=== PATIENT | male | born 1960 | race Caucasian/White ===

== ENCOUNTER 2024-06-02 09:10 | Outpatient (AMB) | payer MEDICARE, MEDICAID, SELFPAY ==
--- NOTE | 2024-06-02 09:13 | MHC.PC.OV ---
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 Intake Note: New patient visit Building Performance Consultant Required: No Allergies No Known Allergies Allergy (Verified 06/02/24 09:14) Medication List - Last Reconciled 06/02/24 by Lisa Valenzuela PA-C fluticasone furoate-vilanterol 100-25 mcg/dose (Breo Ellipta) 1 ea inhalation DAILY gabapentin mg PO labetalol 200 mg PO BID methocarbamol mg PO multivitamin 1 tab PO DAILY tamsulosin 0.8 mg PO DAILY umeclidinium 62.5 mcg/actuation (Incruse Ellipta) 1 inh inhalation DAILY venlafaxine ER 75 mg PO DAILY Tobacco use date assessed: 06/02/24 Fall risk assessment: 1 Fall in past year Last assessed Fall Risk: 06/02/24 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 He is transferring from [facility], Dr. Spaulding. He reports a significant past medical history of prostate ca, anxiety, depression, benign essential tremor, asthma, htn, borderline hld, severe yovani CV: Blood pressure today in the office is 136/76. He is currently well-controlled with labetalol 200 mg twice a day. In the past he was on amlodipine in addition to this but unfortunately was getting lightheaded with this. This was decided by [facility]. He states that he thinks he was over treated because he did lose weight with diet and lifestyle modifications following the prostate cancer diagnosis. He did have a complete cardiac workup a few years ago given family history of heart disease. Pulm: follows with [facility] sleep [facility] Heme/onc: Following with DF. Dx last year with prostate ca stage 4. He was dx after developing sx. He states that he went to [facility] and was told that he had prostate cancer so then went to [facility] where he has been working with a collaborative team. He has responded to radiation therapy. He did signed to get a release of records. Currently he is being treated with hormones and has been experiencing some hot flashes and difficulty sleeping. He is trialing venlafaxine and gabapentin. He was also put on trazodone 50 mg but does have a hard time falling asleep and staying asleep. States that he does not have significant pain but he does have some neuropathy in his feet and this does appear to be improved with the gabapentin. Pysch: As above. 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 There has been response to radiation. He is going to try this again. He states that he does not have significant pain in his states that he does under report his symptoms. He states that he does feel achy at times. He did recently trip over his disabled adult child and was prescribed muscle relaxants which he states has been helpful. He did have an x-ray of his ribs and he states that they were normal. PSA: being treated at for prostate ca Colonoscopy: UTD-2021- due in 2026 [facility] Surgical History (Updated 06/02/24 @ 10:49 by Ana Thrasher CMA) H/O vasectomy H/O tooth extraction Family History (Updated 06/02/24 @ 10:52 by Ana Thrasher CMA) Daughter FH: mental illness Father FH: mental illness Asthma High cholesterol Mother Asthma Alzheimer's dementia Maternal Grandmother Cancer of back Paternal Aunt Cardiovascular disease Social History (Updated 06/02/24 @ 09:58 by Ana Thrasher CMA) Housing: House Alcohol intake: never Patient Tobacco Use Status: Never used Tobacco e-Cigarette/Vaping Use: Never Used Second Hand Smoke Exposure: No service: No Current occupational status: employed and retired Cognitive needs: No Hearing needs: Yes (hearing aids) Vision needs: Yes (yes) Questionnaire PHQ-9 Over the last 2 weeks, how often have you been bothered by any of the following problems? 1. Little interest or pleasure in doing things: several days 2. Feeling down, depressed, or hopeless: several days 3. Trouble falling or staying asleep, or sleeping too much: more than half the days 4. Feeling tired or having little energy: nearly every day 5. Poor appetite or overeating: several days 6. Feeling bad about yourself - or that you are a failure or have let yourself or your family down: several days 7. Trouble concentrating on things, such as reading the newspaper or watching television: nearly every day 8. Moving or speaking so slowly that other people could have noticed. Or the opposite - being so fidgety or restless that you have been moving around a lot more than usual: several days 9. Thoughts that you would be better off or of hurting yourself in some way: not at all Total score: 13 Depression Screening Interpretation: Positive Depression Screening Follow-up: Existing condition, In treatment and Change in Medication Depression Screening Done: Yes 55763 - PHQ-9 Billing: Yes Source: Developed by Drs. Jose Miguel Helms, Lissette Moreau, Efren Jacob and colleagues, with an educational kathy from [employer]. Thrive Questionnaire Date Thrive assessed: 06/02/24 I am a: Patient What is your living situation today?: I have a steady place to live Within the past 12 months, did the food you bought not last and you didn't have the money to get more?: Never true Within the past 12 months, did you worry whether your food would run out before you got money to buy more?: Never true Do you have trouble paying for medicines?: No Do you have trouble getting transportation to medical appointments?: No Do you have trouble paying your heating and electricity bill?: No Do you have trouble taking care of your child, family member or friend?: No Do you have trouble with day-to-day activities such as bathing, preparing meals, shopping, managing finances, etc.?: No Are you currently unemployed and looking for a job?: No Are you interested in more education?: No Please select the resources that you would like help with: None Currently or been in a relationship where the following occur: No concerns reported THRIVE Score: 0 AUDIT C Alcohol Use Questionnaire (AUDIT-C) 1. How often do you have a drink containing alcohol?: Never 3. How often do you have six or more drinks on one occasion?: Never Total Score: 0 DALLAS-7 AMB Questionnaire DALLAS-7 Date DALLAS - 7 assessed: 06/02/24 Feeling nervous, anxious, or on edge: 2 = More than half the days Not being able to stop or control worryin = Several days Worrying too much about different things: 1 = Several days Trouble relaxin = Several days Being so restless that it is hard to sit still: 0 = Not at all Becoming easily annoyed or irritable: 2 = More than half the days Feeling afraid as if something awful might happen: 1 = Several days Total DALLAS-7 score (0-4 normal; 5-9 mild; 10-14 moderate; 15-21 severe): 8 Source: Developed by Drs. Jose Miguel Helms, Lissette Moreau, Efren Jacob and colleagues, with an educational kathy from [employer]. DALLAS-7 Assessment Billing DALLAS-7 Assessment Tool: DALLAS-7 Assessment 76316 ACT Questionnaire In the past 4 weeks, how much of the time did your asthma keep you from getting as much done at work, school or at home?: None of the time During the past 4 weeks, how often have you had shortness of breath?: Once a day During the past 4 weeks, how often did your asthma symptoms wake you up at night or earlier than usual in the morning?: Not at all During the past 4 weeks, how often have you had to use your rescue inhaler or nebulizer medication?: Not at all How would you rate your asthma control during the past 4 weeks?: Completely controlled ACT Interpretation: Positive Score: 22 Physical exam (Primary Care) Vital Signs: Last Vital Signs Temp 98 F 06/02/24 09:18 Pulse 68 06/02/24 09:18 Resp 16 06/02/24 09:18 BP 136/76 06/02/24 09:18 Pulse Ox 98 06/02/24 09:18 Oxygen Delivery Method Room Air 06/02/24 09:18 BMI result Body Mass Index 35.3 Tobacco/Smoking Status: Tobacco use Status Tobacco use date assessed 06/02/24 06/02/24 09:23 Patient Tobacco Use Status Never used Tobacco 06/02/24 09:58 e-Cigarette/Vaping Use Never Used 06/02/24 09:58 PHQ-9: PHQ-9 Score PHQ-9: Total score 13 06/02/24 10:52 Depression Screening Interpretation: Positive Depression Screening Follow-up: Existing condition, In treatment and Change in Medication Thrive Assessment: Date of Thrive Assessment Date Thrive assessed 06/02/24 06/02/24 10:52 Currently or been in a relationship where the following occur: No concerns reported Const Orientation/consciousness: patient oriented x3 HENMT Ears: hearing grossly normal bilaterally Neck Thyroid: Thyroid normal Lymphatic: no lymphadenopathy noted Resp Auscultation: clear to auscultation bilaterally Cardio Rate: regular rate Rhythm: regular rhythm Heart sounds: S1 normal heart sound present and S2 normal heart sound present GI Inspection: Yes normal to inspection Palpation (GI): Soft to palpation and Other GI palpation findings present (nontender, no cva tenderness) Auscultation: normoactive bowel sounds Rectal Exam - Male: Yes deferred Skin General skin exam: no rashes or lesions noted Neuro General: patient oriented x3, gait normal and no focal motor deficits Coding Level of Care Code New Pt Level 4 (01062) Complex EM visit Add On G2211 Diagnoses Adenocarcinoma of prostate, stage 4 C61 HTN (hypertension) I10 Dyslipidemia E78.5 Insomnia G47.00 Hot flashes R23.2 Additional Codes Asthma Control Questionnaire - ACT Interpretation: Positive ([id number]) DALLAS-7 Assessment Billing - DALLAS-7 Assessment Tool: DALLAS-7 Assessment 95930 ([id number]) PHQ-9 - 38371 - PHQ-9 Billing: Yes ([id number]) Assessment & Plan Assessment & Plan (1) Adenocarcinoma of prostate, stage 4: Code(s): C61 - Malignant neoplasm of prostate Category: Medical Plan: Following with Susie[facility] (2) HTN (hypertension): Code(s): I10 - Essential (primary) hypertension Category: Medical Plan: Currently well-controlled. We will continue current regimen (3) Dyslipidemia: Code(s): E78.5 - Hyperlipidemia, unspecified Category: Medical Plan: Lipids ordered. We will follow up pending test results (4) Insomnia: Code(s): G47.00 - Insomnia, unspecified Category: Medical Plan: Increase trazodone to 100 mg. Follow up in 4-6 weeks to be reassessed. Sooner if needed (5) Hot flashes: Code(s): R23.2 - [place] Category: Medical Plan: As above. Continue with the venlafaxine and gabapentin. Orders: Orders Lipid Panel Today C61 - Malignant neoplasm of prostate, E78.5 - Hyperlipidemia, unspecified, G47.00 - Insomnia, unspecified, I10 - Essential (primary) hypertension, R23.2 - [place] Comprehensive [place]. Panel Fast Today C61 - Malignant neoplasm of prostate, E78.5 - Hyperlipidemia, unspecified, G47.00 - Insomnia, unspecified, I10 - Essential (primary) hypertension, R23.2 - [place] Hemoglobin A1c Today C61 - Malignant neoplasm of prostate, E78.5 - Hyperlipidemia, unspecified, G47.00 - Insomnia, unspecified, I10 - Essential (primary) hypertension, R23.2 - [place], R73.01 - Impaired fasting glucose Magnesium Today C61 - Malignant neoplasm of prostate, E78.5 - Hyperlipidemia, unspecified, G47.00 - Insomnia, unspecified, I10 - Essential (primary) hypertension, R23.2 - [place] UA CC w/rflx Micro + Cult Today C61 - Malignant neoplasm of prostate, E78.5 - Hyperlipidemia, unspecified, G47.00 - Insomnia, unspecified, I10 - Essential (primary) hypertension, R23.2 - [place], Z13.220 - Encounter for screening for lipoid disorders Vitamin B12 and Folate Today C61 - Malignant neoplasm of prostate, E78.5 - Hyperlipidemia, unspecified, G47.00 - Insomnia, unspecified, I10 - Essential (primary) hypertension, R23.2 - [place] Medications: New trazodone 100 mg PO BEDTIME 90 tabs 3RF labetalol 200 mg PO BID 180 tabs 3RF
[2024-06-02 09:18] VITALS: BP 136/76; PULSE 68; RESP 16; TEMP 36.6; O2SAT 98; BMI 35.3
--- OUTSIDE RECORDS SUMMARY | 2024-06-02 10:09 | XMS_ITS | Clinical Summary ---
Author Organization [facility] Address [address] [place] [address] Care Team Providers Care Pulley Mortiser Operator Name Role Phone Pcp, No Primary Care Provider Unavailabl e Allergies No known active allergies Medications amLODIPine (NORVASC) 10 MG tablet Take 10 mg by mouth daily. 3 Active Breztri Aerosphere 160-9-4.8 MCG/ACT Aerosol 3 Active labetalol (NORMODYNE) 200 MG tablet Take 200 mg by mouth 2 (two) times a day. 3 Active losartan (COZAAR) 100 MG tablet Take 100 mg by mouth daily. 3 Active traZODone (DESYREL) 50 MG tablet 3 Active apalutamide (ERLEADA) 240 mg tablet Take 240 mg by mouth daily 4 Active Breo Ellipta 100-25 MCG/ACT inhaler Inhale 1 puff daily. 5 Active gabapentin (NEURONTIN) 100 MG capsule Take 100-300 mg by mouth 4 (four) times a day. 5 Active venlafaxine (EFFEXOR-XR) 75 MG 24 hr capsule Take 75 mg by mouth daily. 5 Active tamsulosin (FLOMAX) 0.4 MG capsule Take 0.8 mg by mouth daily. 4 Active methocarbamol (ROBAXIN) 500 MG tabletIndicatio ns:Rib injury Take 1 tablet (500 mg total) by mouth 4 (four) times a day. 20 tablet 5 Active benzonatate (TESSALON) 200 MG capsuleIndicati ons:URI, acute Take 1 capsule (200 mg total) by mouth 3 (three) times a day as needed for cough. 20 capsule 3 06/02/19 25 Discontinu ed(Therapy completed) Hospital, Clinic, or Other Facility Administered Medication Ordered Dose Route Frequency Start Date End Date Status ibuprofen (MOTRIN) tablet 800 mgIndications:Rib injury,Injury of toe on right foot, initial encounter 800 mg PO Once 06/01/2024 06/01/2024 Ended Active Problems Problem Noted Date Diagnosed Date Elevated PSA 06/01/2024 Sleep disturbance 06/01/2024 At risk for falling 11/27/2023 Asthma 10/01/2023 Gastroesophageal reflux disease 10/01/2023 Hoarseness 10/01/2023 Hypertension 10/01/2023 Obstructive sleep apnea syndrome 10/01/2023 Prostate cancer 10/01/2023 Prediabetes 10/01/2023 Steatosis of liver 10/01/2023 Enthesopathy of right knee region 01/18/2019 Encounters Date Type Department Care Team Description 06/01/2024 2:25 PM EDT Office Visit [facility] [address] [phone] Bib Mayfield MD Devitt, Anna C, APRN Rib injury (Primary Dx); Fall, initial encounter; Injury of toe on right foot, initial encounter; History of osteoporosis; Prostate cancer (HCC); Abrasion, left knee, initial encounter 06/01/2024 Scanned Document [address] [place] [phone] Provider, Generic 06/01/2024 Travel from Last 3 Months Social History Tobacco Use Types Packs/Day Years Used Date Smoking Tobacco: Never Assessed Sex and Gender Information Value Date Recorded Sex Assigned at Not on file Legal Sex Male 9:34 AM EST Gender Identity Not on file Sexual Orientation Not on file Last Filed Vital Signs Vital Sign Reading Time Taken Comments Blood Pressure 163/94 06/01/2024 2:42 PM EDT Pulse 69 06/01/2024 2:42 PM EDT Temperature 36.9 ??C (98.4 ??F) 06/01/2024 2:42 PM ED T Respiratory Rate 20 06/01/2024 2:42 PM EDT Oxygen Saturation 99% 06/01/2024 2:42 PM EDT Inhaled Oxygen Concentration - - Weight 111 kg (245 lb) 06/01/2024 2:42 PM EDT Height 182.9 cm (6') 06/01/2024 2:42 PM EDT Body Mass Index 33.23 06/01/2024 2:42 PM EDT Plan of Treatment Health Maintenance Due Date Last Done Comments Hepatitis C Virus Screening 1960 HIV Screening 05/06/1972 DTaP/Tdap/Td Vaccines (1 - Tdap) 05/06/1978 Pneumococcal Vaccines 50+ (1 of 2 - PCV) 05/06/1978 Zoster (Shingles) Vaccine (1 of 2) 05/06/1978 Colonoscopy 05/06/2004 RSV Vaccine 60 years and older and Patients (1 - Risk 60-74 years 1-dose series) 2019 Influenza Vaccine 09/17/2023 01/21/2023, , 02/19/2021, Additional history exists COVID-19 Vaccine ( season) 2023 02/19/2021, 06/18/2020, 05/27/2020 Hepatitis B Vaccines Aged Out No long er eligible based on patient's age to complete this topic Procedures Procedure Name Priority Date/Time Associated Diagnosis Comments XR TOE (3RD) 2+ VIEWS-RIGHT STAT 06/01/2024 3:54 PM EDT Injury of toe on right foot, initial encounter XR RIBS 3 VIEWS-LEFT (NO CHEST) STAT 06/01/2024 3:40 PM EDT Rib injury Fall, initial encounter History of osteoporosis XR CHEST 2 VIEWS STAT 06/01/2024 3:39 PM EDT Rib injury Fall, initial encounter History of osteoporosis from Last 3 Months Results * XR Toe (3rd) 2+ views-Right (06/01/2024 3:54 PM EDT) Anatomical Region Laterality Modality Foot Right Computed Radiogr aphy 06/01/2024 4:08 PM EDT Impressions 06/01/2024 4:09 PM EDT No acute bony abnormality. Narrative 06/01/2024 4:09 PM EDT EXAM: XR TOE (3RD) 2+ VIEWS-RIGHT on 06/01/2024 3:42 PM CLINICAL HISTORY: 64 years Male with provided indication of 3rd toe injury 2 months ago . COMPARISONS: None TECHNIQUE: 3 views of the right third toe. FINDINGS: No acute fracture or dislocation. No significant soft tissue abnormality. No radiopaque foreign body. Procedure Note Celso Caba MD - 06/01/2024 EXAM: XR TOE (3RD) 2+ VIEWS-RIGHT on 06/01/2024 3:42 PM CLINICAL HISTORY: 64 years Male with provided indication of 3rd toe injury 2 months ago . COMPARISONS: None TECHNIQUE: 3 views of the right third toe. FINDINGS: No acute fracture or dislocation. No significant soft tissue abnormality.No radiopaque foreign body. IMPRESSION: No acute bony abnormality. Bruna Ryan CLINICAL ASSESSMENT MANAGER [facility] DIAGNOSTIC [facility]ING [facility] BLES Final Result * XR Ribs 3 views-Left (no chest) (06/01/2024 3:40 PM EDT) Anatomical Region Laterality Modality Chest Left Computed Radiogr aphy 06/01/2024 3:44 PM EDT Impressions 06/01/2024 3:45 PM EDT 1. ??No left rib fracture identified. Narrative 06/01/2024 3:45 PM EDT EXAM: XR RIBS 3 VIEWS-LEFT (NO CHEST) on 06/01/2024 3:18 PM CLINICAL HISTORY: Left lateral rib pain after fall/. ??Affected ribs 4 through 7. r/o fracture. COMPARISONS: None TECHNIQUE: Multiple views of the left ribs in varying obliquities. FINDINGS: No displaced rib fracture is identified. No visible pneumothorax. The visible lung is normally aerated. Procedure Note Don Henry MD - 06/01/2024 EXAM: XR RIBS 3 VIEWS-LEFT (NO CHEST) on 06/01/2024 3:18 PM CLINICAL HISTORY: Left lateral rib pain after fall/. Affected ribs 4 through 7. r/ofracture. COMPARISONS: None TECHNIQUE: Multiple views of the left ribs in varying obliquities. FINDINGS: No displaced rib fracture is identified. No visible pneumothorax. Thevisible lung is normally aerated. IMPRESSION: 1. No left rib fracture identified. Bruna Ryan [facility] Final Result * XR Chest 2 views (06/01/2024 3:39 PM EDT) Anatomical Region Laterality Modality Chest Computed Radiogr aphy 06/01/2024 3:40 PM EDT Impressions 06/01/2024 3:40 PM EDT 1. ??No radiographic sign of acute cardiopulmonary disease. Narrative 06/01/2024 3:40 PM EDT EXAM: XR CHEST 2 VIEWS on 06/01/2024 3:18 PM CLINICAL HISTORY: rib evaluation. COMPARISONS: None TECHNIQUE: Frontal and lateral views of the chest. FINDINGS: The lungs are clear. The heart is not enlarged. Mediastinal contours are within normal limits. ??No pleural effusion present. Skeletal structures are unremarkable. Procedure Note Don Henry MD - 06/01/2024 EXAM: XR CHEST 2 VIEWS on 06/01/2024 3:18 PM CLINICAL HISTORY: rib evaluation. COMPARISONS: None TECHNIQUE: Frontal and lateral views of the chest. FINDINGS: The lungs are clear. The heart is not enlarged. Mediastinal contours arewithin normal limits. No pleural effusion present. Skeletal structuresare unremarkable. IMPRESSION: 1. No radiographic sign of acute cardiopulmonary disease. Bruna Ryan [facility] Final Result from Last 3 Months Insurance [employer] M[employer] MEDICARE Care Teams Pulley Mortiser Operator Relationship Specialty Start Date End Date Pcp, No PCP - General 06/01/24
--- OUTSIDE RECORDS SUMMARY | 2024-06-02 10:09 | XMS_ITS | Encounter Summary ---
Author Organization [facility] Address [address] [place] [address] Care Team Providers Care Toll Gate Keeper Name Role Phone Pcp, No Primary Care Provider Unavailabl e Encounter Details Date Type Department Care Team (Late st Contact Info) Description 06/01/2024 Scanned Document [address] [place] [phone] Provider, Generic Social History Tobacco Use Types Packs/Day Years Used Date Smoking Tobacco: Never Assessed Sex and Gender Information Value Date Recorded Sex Assigned at Not on file Legal Sex Male 9:34 AM EST Gender Identity Not on file Sexual Orientation Not on file documented as of this encounter Plan of Treatment Not on file documented as of this encounter Visit Diagnoses Not on filedocumented in this encounter Care Teams Toll Gate Keeper Relationship Specialty Start Date End Date Pcp, No PCP - General 06/01/24 documented as of this encounter
--- OUTSIDE RECORDS SUMMARY | 2024-06-02 10:09 | XMS_ITS ---
Author Name [facility] Organization Unknown History of Medication Use Medication Directions Dispensed Refills Start Date End Date Stat us losartan (COZAAR) 100 MG tablet Take 100 mg by mouth daily. 10/27/2022 active labetalol (NORMODYNE) 200 MG tablet Take 200 mg by mouth 2 (two) times a day. 11/26/2022 active benzonatate (TESSALON) 200 MG capsule Take 1 capsule (200 mg total) by mouth 3 (three) times a day as needed for cough. 12/30/2022 active amLODIPine (NORVASC) 10 MG tablet Take 10 mg by mouth daily. 12/01/2022 active Problems Problem Status Onset Date Problem Type Date of Resoluti on Source URI, acute active EncounterDiagnosisAct CCT Encounters Encounter Type Encounter Reason Primary Diagnosis Location Date Ambulatory [facility] 06/01/2024 Ambulatory Other Other [facility] 06/01/2024 Ambulatory Acute upper respiratory infection, unspecified Acute upper respiratory infection, unspecified [facility] 12/30/2022 Care Team Organization Name Specialty Phone Email Start Date End Da te [facility] NO PCP Primary Care 06/01/2024 [facility] PROVID[facility] SYSTEM Primary Care 06/01/2024 [facility] 12/31/2022 05/04/2024 [facility] 12/30/2022 12/30/2022
--- OUTSIDE RECORDS SUMMARY | 2024-06-02 10:09 | XMS_ITS | Encounter Summary ---
Author Organization [facility] Address [address] [place] [address] Care Team Providers Care Roustabout Crew Pusher Name Role Phone Pcp, No Primary Care Provider Unavailabl e Reason for Referral * Podiatry (Elective) - Pending Review Specialty Diagnoses / Procedures Referred By Yobany t Referred To Contact Podiatry Diagnoses Injury of toe on right foot, initial encounter Bruna Ryan APRN [address] [place] [address] Phone: tel: fax: [facility] [address] [place] [phone] Phone: tel: fax: Referral ID Status Reason Start Date Expiration Date V isits Requested Visits Authorized [id number] Pending Review 06/01/2024 06/02/2025 1 1 Reason for Visit * Reason Comments Other Tripped over shanice chauhan this morning that fell and hurt his left knee, left rib cage having pain and hurts to take a deep breath, also hurt his toe Encounter Details Date Type Department Care Team (Late st Contact Info) Description 06/01/2024 2:25 PM EDT Office Visit [facility] [address] [phone] Bbi Mayfield MD [address] [place] [id number] Bruna Ryan APRN [address] [place] [address] Rib injury (Primary Dx); Fall, initial encounter; Injury of toe on right foot, initial encounter; History of osteoporosis; Prostate cancer (HCC); Abrasion, left knee, initial encounter Social History Tobacco Use Types Packs/Day Years Used Date Smoking Tobacco: Never Assessed Sex and Gender Information Value Date Recorded Sex Assigned at Not on file Legal Sex Male 9:34 AM EST Gender Identity Not on file Sexual Orientation Not on file documented as of this encounter Last Filed Vital Signs Vital Sign Reading [...] Mass Index 33.23 06/01/2024 2:42 PM EDT documented in this encounter Progress Notes * Bruna Ryan, DISULFURIZER TENDER - 06/01/2024 3:08 PM EDT Assessment & Plan Phan was seen today for other. Diagnoses and all orders for this visit: Rib injury - Cancel: XR Toe (3rd) 2+ views-Right - XR Ribs 3 views-Left (no chest) - XR Chest 2 views - ibuprofen (MOTRIN) tablet 800 mg - methocarbamol (ROBAXIN) 500 MG tablet; Take 1 tablet (500 mg total) by mouth 4 (four) times a day. Fall, initial encounter - Cancel: XR Toe (3rd) 2+ views-Right - XR Ribs 3 views-Left (no chest) - XR Chest 2 views Injury of toe on right foot, initial encounter - Cancel: XR Toe (3rd) 2+ views-Right - ibuprofen (MOTRIN) tablet 800 mg - Cancel: XR Toe (3rd) 2+ views-Right - XR Toe (3rd) 2+ views-Right - Amb Referral to Podiatry History of osteoporosis - Cancel: XR Toe (3rd) 2+ views-Right - XR Ribs 3 views-Left (no chest) - XR Chest 2 views Prostate cancer (HCC) Abrasion, left knee, initial encounter I independently reviewed the Xray images via the electronic system and my reading is as follows: 2 Views, chest Final Read: no acute cardiopulmonary changes I independently reviewed the Xray images via the electronic system and my reading is as follows: 2 Views, right 3rd toe Final Read: No fracture or dislocation. I independently reviewed the Xray images via the electronic system and my reading is as follows: 3 Views, left ribs Final Read: No fracture or dislocation. Fall with left-sided rib pain and history of prostate cancer as well as osteoporosis. The chest x-ray is reassuring. Patient was advised to continue with ibuprofen as well as Robaxin. Ibuprofen patient has at home, first dose was given here in the clinic. Robaxin was sent to the pharmacy for the patient. Follow-up with primary care provider or oncology radiologist within the next 7 days if pain persists. Patient was advised of the limitations of x-ray for identifying a rib fracture, but was advised that typically supportive care is indicated, no further intervention is needed. Digital copies of the x-rays on disc were provided to the patient. Abrasion of the left knee. Continue wash with soap and water use antibiotic ointment and a Band-Aid. Return to the clinic if there is any signs or symptoms of infection such as increased pain Redness, swelling or drainage. Persistent right third toe pain. Patient was advised to wear supportive shoes with an in flexible sole, shoe inserts may be indicated. Because pain has been persistent for the last 2 months patient was advised to follow-up with podiatry. Contact information and referral were provided. May use ibuprofen, rest and elevation. Spouse verbalized understanding and agreement with current plan of treatment. No results found for this or any previous visit (from the past 2 hours). Subjective Subjective Patient ID: Phan Bryant is a 64 y.o. male. HPI Review of Systems Constitutional: Positive for activity change. Negative for chills, fatigue and fever. HENT: Negative. Respiratory: Positive for shortness of breath. Cardiovascular: Negative. Musculoskeletal: Positive for arthralgias and myalgias. Skin: Negative. Neurological: Negative. Objective Objective Vitals: 04/16/25 1442 BP: (!) 163/94 Pulse: 69 Resp: 20 Temp: 98.4 ??F (36.9 ??C) SpO2: 99% Weight: 111 kg (245 lb) Height: 1.829 m (6') Physical Exam Vitals and nursing note reviewed. Constitutional: General: He is awake. Appearance: Normal appearance. He is well-developed and well-groomed. He is not ill-appearing, toxic-appearing or diaphoretic. Cardiovascular: Rate and Rhythm: Normal rate and regular rhythm. Pulmonary: Effort: Pulmonary effort is normal. Breath sounds: Normal breath sounds and air entry. Chest: Chest wall: Swelling and tenderness present. No crepitus. Comments: Tenderness with palpation over the lateral ribs 4 through 7 on the left side. Swelling. No ecchymosis or bruising. Musculoskeletal: Right foot: Normal range of motion and normal capillary refill. Tenderness and bony tenderness present. No swelling or crepitus. Normal pulse. Comments: In the visual examination of the right third toe which shows slight misalignment. Some tenderness with palpation of the distal toe. Toenails intact. No axial load tenderness. Skin: General: Skin is warm and dry. Neurological: General: No focal deficit present. Mental Status: He is alert and oriented to person, place, and time. Psychiatric: Attention and Perception: Attention normal. Mood and Affect: Affect normal. Behavior: Behavior normal. Behavior is cooperative. documented in this encounter Plan of Treatment Scheduled Referrals Name Type Priority Associated Diagnoses Orde r Schedule Amb Referral to Podiatry Outpatient Referral Routine Injury of toe on right foot, initial encounter Ordered: 06/01/2024 documented as of this encounter Procedures Procedure Name Priority Date/Time Associated Diagnosis Comments XR TOE (3RD) 2+ VIEWS-RIGHT STAT 06/01/2024 3:54 PM EDT Injury of toe on right foot, initial encounter XR RIBS 3 VIEWS-LEFT (NO CHEST) STAT 06/01/2024 3:40 PM EDT Rib injury Fall, initial encounter History of osteoporosis XR CHEST 2 VIEWS STAT 06/01/2024 3:39 PM EDT Rib injury Fall, initial encounter History of osteoporosis documented in this encounter Results * XR Toe (3rd) 2+ views-Right [...] IMPRESSION: No acute bony abnormality. Bruna Ryan DISULFURIZER TENDER IMG DIAGNOSTIC IMAGING ORDERA BLES Final Result [...] CLINICAL HISTORY: Left lateral rib pain after . Affected ribs 4 through 7. r/ofracture. COMPARISONS: None TECHNIQUE: Multiple views of the left ribs in varying obliquities. FINDINGS: No displaced rib fracture is identified. No visible pneumothorax. Thevisible lung is normally aerated. IMPRESSION: 1. No left rib fracture identified. Bruna Ryan DISULFURIZER TENDER [facility] DIAGNOSTIC IMAGING ORDERA BLES Final Result * [...] sign of acute cardiopulmonary disease. Bruna Ryan DISULFURIZER TENDER [facility] DIAGNOSTIC IMAGING ORDERA BLES Final Result documented in this encounter Visit Diagnoses Diagnosis Rib injury- Primary Sprain and strain of ribs Fall, initial encounter Injury of toe on right foot, initial encounter History of osteoporosis Personal history of other musculoskeletal disorders Prostate cancer (HCC) Malignant neoplasm of prostate Abrasion, left knee, initial encounter documented in this encounter Administered Medications Inactive Administered Medications - up to 1 most recent administrations Medication Order MAR Action Action Date Dose Rate Site ibuprofen (MOTRIN) tablet 800 mg 800 mg, Oral, Once, On Thu06/01/24 at 1530, For 1 dose, Administer with food.Indications:Rib injury,Injury of toe on right foot, initial encounter Given 06/01/2024 3:22 PM EDT 800 mg documented in this encounter Care Teams Roustabout Crew Pusher Relationship Specialty Start Date End Date Pcp, No PCP - General 06/01/24 documented as of this encounter
--- OUTSIDE RECORDS SUMMARY | 2024-06-02 10:09 | XMS_ITS | Encounter Summary ---
Author Organization [facility] Address [address] [place] [address] Care Team Providers Care Boom Conveyor Operator Name Role Phone Pcp, No Primary Care Provider Unavailabl e Encounter Details Date Type Department Care Team (Latest Contact Info) Description 06/01/2024 Travel Social History Tobacco Use Types Packs/Day Years [...] on filedocumented in this encounter Care Teams Boom Conveyor Operator Relationship Specialty Start Date End Date Pcp, No PCP - General 06/01/24 documented as of this encounter
== END 2024-06-02 10:06 | disposition home or self-care (01) ==
PROVIDERS: PCP Physician Assistant; Visit Provider Physician Assistant
DX: C61 Malignant neoplasm of prostate (principal); I10 Essential (primary) hypertension; E78.5 Hyperlipidemia, unspecified; G47.00 Insomnia, unspecified; R23.2 Flushing

== ENCOUNTER → 2024-06-02 09:10 | Outpatient (BNVA) | payer MEDICARE, MEDICAID, SELFPAY | PROVIDERS: PCP Physician Assistant; Visit Provider Physician Assistant | DX: I10 Essential (primary) hypertension (principal); C61 Malignant neoplasm of prostate; E78.5 Hyperlipidemia, unspecified; G47.00 Insomnia, unspecified; R23.2 Flushing; G47.33 Obstructive sleep apnea (adult) (pediatric); Z79.899 Other long term (current) drug therapy | CPT/HCPCS: 96127; 96160; 99202 ==

== ENCOUNTER 2024-06-14 08:25 | Outpatient (REF) | payer MEDICARE, MEDICAID, SELFPAY ==
--- OUTSIDE RECORDS SUMMARY | 2024-06-14 08:41 | XMS_ITS | Encounter Summary ---
Author Organization [facility] Address [address] [place] [address] Care Team Providers Care Awake Overnight Counselor Name Role Phone Pcp, No Primary Care Provider Unavailabl e Encounter Details Date Type Department Care Team (Late Contact Info) Description 06/01/2024 Scanned Document [facility] [address] [facility] [address] [facility] [place] [address] Provider, Generic Social History Tobacco Use Types Packs/Day Years Used Date Smoking Tobacco: Never Assessed Sex and Gender Information Value Date Recorded Sex Assigned at Not on file Legal Sex Male 9:34 AM EST Gender Identity Not on file Sexual Orientation Not on file documented as of this encounter Plan of Treatment Upcoming Encounters Date Type Department Care Team (Late Contact Info) Description 06/23/2024 1:00 PM EDT Consult [facility] Podiatric Surgery [place] [address] [place] [address] Alyson Bang, DPM [address] [facility] [address] [place] [address] documented as of this encounter Visit Diagnoses Not on filedocumented in this encounter Care Teams Awake Overnight Counselor Relationship Specialty Start Date End Date Pcp, No PCP - General 06/01/24 documented as of this encounter
--- OUTSIDE RECORDS SUMMARY | 2024-06-14 08:41 | XMS_ITS | Clinical Summary ---
Author Organization [facility] Address [address] [place] [address] Care Team Providers Care Physician Interventional Cardiologist Name Role Phone Pcp, No Primary Care [...] Description 06/01/2024 2:25 PM EDT Office Visit [facility] [address] [phone] Bib Mayfield MD Devitt, Bruna Cohn APRN Rib injury (Primary Dx); Fall, initial encounter; Injury of toe on right foot, initial encounter; History of osteoporosis; Prostate cancer (HCC); Abrasion, left knee, initial encounter 06/01/2024 Scanned Document [address] [place] [phone] Provider, Generic 06/01/2024 Travel from Last 3 [...] 06/01/2024 2:42 PM EDT Plan of Treatment Upcoming Encounters Date Type Department Care Team (Late st Contact Info) Description 06/23/2024 1:00 PM EDT Consult [facility] [address] [place] [address] Alyson Bang, DPM [address] [address] Health Maintenance Due Date Last Done Comments [...] IMPRESSION: No acute bony abnormality. Bruna Ryan APRN IMG DIAGNOSTIC IMAGING ORDERA BLES Final Result [...] CLINICAL HISTORY: Left lateral rib pain after fall. Affected ribs 4 through 7. r/ofracture. COMPARISONS: None TECHNIQUE: Multiple views of the left ribs in varying obliquities. FINDINGS: No displaced rib fracture is identified. No visible pneumothorax. Thevisible lung is normally aerated. IMPRESSION: 1. No left rib fracture identified. Bruna Ryan [facility] DIAGNOSTIC IMAGING ORDERA BLES Final Result * [...] sign of acute cardiopulmonary disease. Bruna Ryan SPRINKLER INSTALLER [facility] DIAGNOSTIC IMAGING ORDERA BLES Final Result from Last 3 Months Insurance [facility] Care Teams Physician Interventional Cardiologist Relationship Specialty Start Date End Date Pcp, No PCP - General 06/01/24
[2024-06-14 11:39] LABS: Appearance Urine Clear; Color Urine Yellow; Glucose Urine UA Negative (Negative); Leukocyte Esterase Urine Negative (Negative); Nitrite Urine Negative (Negative); Specific Gravity - Urine 1.015 (1.005-1.025); Urine Blood Negative (Negative); Urine Ketones Negative (Negative); Urine Protein Negative (Neg-Trace)
[2024-06-14 11:42] LABS: Estimated Average Glucose 94 mg/dL; Hemoglobin A1C 101.0552 umol/L; Hemoglobin A1c % 4.9 % (<6.0); Total Hemoglobin (HGBA1C) 3398.5929 umol/L
[2024-06-14 12:05] LABS: Alanine Aminotransferase 13 U/L (0-40); Albumin Level 4.1 g/dL (3.5-5.0); Alkaline Phosphatase 93 U/L (39-117); Anion Gap 11 (12-20); Aspartate Amino Transferase 27 U/L (5-37); Bilirubin Total 0.5 mg/dL (0.0-1.0); Blood Urea Nitrogen 14 mg/dL (9-16); Calcium 9.2 mg/dL (8.4-10.2); Carbon Dioxide 27 mmol/L (22-29); Chloride 106 mmol/L (96-108); Cholesterol 196 mg/dL (<200); Estimated Glomerular Filt Rate > 60; Glucose Fasting 91 mg/dL (60-99); HDL Cholesterol 37 mg/dL (>40); LDL Cholesterol Calculated 127 mg/dL (<100); Magnesium 2.4 mg/dL (1.6-2.6); Sodium 140 mmol/L (135-145); Total Protein 6.9 g/dL (6.5-8.0); Triglycerides 162 mg/dL (<150)
[2024-06-14 12:23] LABS: Folate 12.8 ng/mL (> or = 4.0); Vitamin B12 358 pg/mL (200-900)
== END 2024-06-14 08:26 | disposition home or self-care (01) ==
LOC: HO.WFDLDS 08:25
PROVIDERS: Visit Provider Physician Assistant
DX: C61 Malignant neoplasm of prostate (principal); I10 Essential (primary) hypertension; E78.5 Hyperlipidemia, unspecified; G47.00 Insomnia, unspecified; R23.2 Flushing; Z13.220 Encounter for screening for lipoid disorders; R73.01 Impaired fasting glucose
CPT/HCPCS: 36415; 80053; 80061; 81003; 82607; 82746; 83036; 83735

== ENCOUNTER 2024-07-20 11:10 | Outpatient (AMB) | payer MEDICARE, MEDICAID, SELFPAY ==
--- NOTE | 2024-07-20 11:11 | MHC.PC.OV ---
Vital Signs 07/20/24 11:13 Height 5 ft 10.08 in Weight 245 lb 4 oz BMI 35.1 BP 144/84 H Blood Pressure Location Rt brachial Position Sitting Respiration 14 Pulse 57 Pulse Source Pulse Oximeter Pulse Oximetry (%) 97 Oxygen Delivery Method Room Air Intake Visit Reasons: f/u meds Intake Note: Follow up medication Allergies No Known Allergies Allergy (Verified 06/02/24 09:14) Medication List - Last Reconciled 07/20/24 by Lisa Valenzuela PA-C amlodipine 10 mg PO DAILY fluticasone furoate-vilanterol 100-25 mcg/dose (Breo Ellipta) 1 ea inhalation DAILY gabapentin mg PO labetalol 200 mg PO BID methocarbamol mg PO multivitamin 1 tab PO DAILY tamsulosin 0.8 mg PO DAILY trazodone 100 mg PO BEDTIME umeclidinium 62.5 mcg/actuation (Incruse Ellipta) 1 inh inhalation DAILY venlafaxine ER 75 mg PO DAILY Tobacco use date assessed: 06/02/24 HPI f/u meds HPI Details Patient is a 64-year-old male who presents today for a follow up. He has a significant past medical history of metastatic prostate ca, anxiety, depression, benign essential tremor, asthma, htn, borderline hld, severe yovani CV: Blood pressure today in the office is 144/84. He restarted the amlodipine but at 10 mg (that was his previous dosage). He is also on labetalol 200 mg twice a day. He has noted that bps at home are going down. He went to ED for elevated blood pressures and left eye pain. He states that they did a CT of the head and neck at [facility]. He states that everything came back normal. Since the blood pressures have been coming down the eye pain has become less present. The left eye pain started about 3 weeks ago when he was traveling on vacation. They flew to [place] and that is when he notices starting to happen. It has gone from a 7/10 discomfort down to a 3/10 discomfort. It seems to be increased by light. He has not seen the eye doctor yet. No vision changes. Denies any blurry vision, loss of vision, nausea or vomiting. No abnormal gait with this. He did have a complete cardiac workup a few years ago given family history of heart disease. Pulm: follows with [facility] sleep med Heme/onc: Following with DF. Dx last year with prostate ca stage 4. He will be undergoing radiation next week. Currently he is being treated with hormones and has been experiencing some hot flashes and difficulty sleeping. He is trialing venlafaxine and gabapentin. He was also put on trazodone . Pysch: As above. He is seeing a psychiatrist on Thursday. He is currently on venlafaxine 37.5 mg, trazodone 100 mg at bedtime and gabapentin. He used to be on a higher dose of the venlafaxine and has been recently noticing some increased anxiety. He thinks it is related to taking the medications for the prostate cancer. He wonders if the hormones are making him feel this way. He was recently at an airport and felt very overwhelmed. He also has been feeling overwhelmed with feeling forgetful. At times he does feel little panicky with this. 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 PSA: being treated at for prostate ca Colonoscopy: UTD-2021- due in 2026 [facility] Surgical History (Updated 06/02/24 @ 10:49 by Ana Thrasher CMA) H/O vasectomy H/O tooth extraction Family History (Updated 06/02/24 @ 10:52 by Ana Thrasher CMA) Daughter FH: mental illness Father FH: mental illness Asthma High cholesterol Mother Asthma Alzheimer's dementia Maternal Grandmother Cancer of back Paternal Aunt Cardiovascular disease Social History (Updated 06/02/24 @ 09:58 by Ana Thrasher CMA) Housing: House Alcohol intake: never Patient Tobacco Use Status: Never used Tobacco e-Cigarette/Vaping Use: Never Used Second Hand Smoke Exposure: No service: No Current occupational status: employed and retired Cognitive needs: No Hearing needs: Yes (hearing aids) Vision needs: Yes (yes) Questionnaire Thrive Questionnaire Date Thrive assessed: 07/13/24 I am a: Patient What is your living situation today?: I have a steady place to live Within the past 12 months, did the food you bought not last and you didn't have the money to get more?: Never true Within the past 12 months, did you worry whether your food would run out before you got money to buy more?: Never true Do you have trouble paying for medicines?: No Do you have trouble getting transportation to medical appointments?: No Do you have trouble paying your heating and electricity bill?: No Do you have trouble taking care of your child, family member or friend?: No Do you have trouble with day-to-day activities such as bathing, preparing meals, shopping, managing finances, etc.?: No Are you currently unemployed and looking for a job?: No Are you interested in more education?: No Currently or been in a relationship where the following occur: No concerns reported THRIVE Score: 0 AUDIT C Alcohol Use Questionnaire (AUDIT-C) 1. How often do you have a drink containing alcohol?: Never 3. How often do you have six or more drinks on one occasion?: Never Total Score: 0 DALLAS-7 AMB Questionnaire DALLAS-7 Date DALLAS - 7 assessed: 06/02/24 Feeling nervous, anxious, or on edge: 2 = More than half the days Not being able to stop or control worryin = Not at all Worrying too much about different things: 0 = Not at all Trouble relaxin = Several days Being so restless that it is hard to sit still: 0 = Not at all Becoming easily annoyed or irritable: 1 = Several days Feeling afraid as if something awful might happen: 0 = Not at all Total DALLAS-7 score (0-4 normal; 5-9 mild; 10-14 moderate; 15-21 severe): 4 Source: Developed by Drs. Jose Miguel Helms, Lissette Moreau, Efren Jacob and colleagues, with an educational kathy from [employer] It's what's in store. Physical exam (Primary Care) Vital Signs: Last Vital Signs Pulse 57 07/20/24 11:13 Resp 14 07/20/24 11:13 BP 144/84 H 07/20/24 11:13 Pulse Ox 97 07/20/24 11:13 Oxygen Delivery Method Room Air 07/20/24 11:13 BMI result Body Mass Index 35.1 Tobacco/Smoking Status: Tobacco use Status Tobacco use date assessed 06/02/24 07/20/24 11:14 Patient Tobacco Use Status Never used Tobacco 07/20/24 11:14 e-Cigarette/Vaping Use Never Used 07/20/24 11:14 Thrive Assessment: Date of Thrive Assessment Date Thrive assessed 07/13/24 07/20/24 11:14 Currently or been in a relationship where the following occur: No concerns reported Results Reviewed Results Reviewed: Laboratory Tests 06/14/24 08:26 Sodium 140 Potassium 4.0 Chloride 106 Carbon Dioxide 27 Anion Gap 11 L BUN 14 Creatinine 1.04 Estimated GFR > 60 Hemoglobin A1c % 4.9 Triglycerides 162 H Cholesterol 196 LDL Cholesterol, Calc 127 H HDL Cholesterol 37 L Coding Level of Care Code Est Pt Level 4 (84966) Complex EM visit Add On G2211 Diagnoses HTN (hypertension) I10 Generalized anxiety disorder with panic attacks F41.1; F41.0 Insomnia G47.00 Left eye pain H57.12 Assessment & Plan Assessment & Plan (1) HTN (hypertension): Code(s): I10 - Essential (primary) hypertension Category: Medical Plan: Continue labetalol. Blood pressure is improved with the amlodipine. We will recheck in 4 weeks. Sooner if anything changes. He will let me know and send me messages. (2) Generalized anxiety disorder with panic attacks: Code(s): F41.1 - Generalized anxiety disorder; F41.0 - Panic disorder [episodic paroxysmal anxiety] Category: Medical Plan: Increase venlafaxine back up to 75 mg daily (3) Insomnia: Code(s): G47.00 - Insomnia, unspecified Category: Medical Plan: Continue trazodone (4) Left eye pain: Code(s): H57.12 - Ocular pain, left eye Plan: Improved. Advised to follow with Ophthalmology. Did have a recent CT. We will request records from [facility]. Patient does appear neurologically intact today. Medications: New lorazepam 0.5 mg PO DAILY 30 days PRN 30 tabs 0RF anxiety Discontinued amlodipine Discontinued Reason: Doctor's Order 5 mg PO DAILY 90 tabs 0RF Patient Instructions: increase
[2024-07-20 11:13] VITALS: BP 144/84; PULSE 57; RESP 14; O2SAT 97; BMI 35.1
== END 2024-07-20 11:50 | disposition home or self-care (01) ==
LOC: HO.HMCFM 11:10
PROVIDERS: PCP Physician Assistant; Visit Provider Physician Assistant
DX: I10 Essential (primary) hypertension (principal); F41.1 Generalized anxiety disorder; F41.0 Panic disorder [episodic paroxysmal anxiety]; G47.00 Insomnia, unspecified; H57.12 Ocular pain, left eye

== ENCOUNTER → 2024-07-20 11:10 | Outpatient (BNVA) | payer MEDICARE, MEDICAID, SELFPAY | PROVIDERS: PCP Physician Assistant; Visit Provider Physician Assistant | DX: I10 Essential (primary) hypertension (principal); F41.1 Generalized anxiety disorder; F41.0 Panic disorder [episodic paroxysmal anxiety]; F41.9 Anxiety disorder, unspecified; F32.A Depression, unspecified; J45.909 Unspecified asthma, uncomplicated; G47.33 Obstructive sleep apnea (adult) (pediatric); C61 Malignant neoplasm of prostate; G47.00 Insomnia, unspecified; H57.12 Ocular pain, left eye | CPT/HCPCS: 99212 ==

== ENCOUNTER 2024-09-01 11:04 | Outpatient (AMB) | payer MEDICARE, MEDICAID, SELFPAY ==
--- NOTE | 2024-09-01 11:18 | A.OFFPC_ITS ---
Vital Signs 09/01/24 11:23 Height 5 ft 10.08 in Weight 251 lb 2 oz BMI 35.9 BP 114/70 Blood Pressure Location Lt brachial Position Sitting Respiration 14 Pulse 63 Pulse Source Pulse Oximeter Pulse Oximetry (%) 96 Oxygen Delivery Method Room Air Intake Visit Reasons: f/u meds Intake Note: Follow up medication Mobile Equipment Servicer Required: No Allergies No Known Allergies Allergy (Verified 09/01/24 11:20) Medication List - Last Reconciled 09/01/24 by Lisa Valenzuela PA-C amlodipine 10 mg PO DAILY fluticasone furoate-vilanterol 100-25 mcg/dose (Breo Ellipta) 1 ea inhalation DAILY gabapentin 600 mg (2 x 300 mg) PO BEDTIME gabapentin 100 mg PO QID lorazepam 0.5 mg PO DAILY PRN 30 days multivitamin 1 tab PO DAILY tamsulosin 0.8 mg PO DAILY trazodone 100 mg PO BEDTIME umeclidinium 62.5 mcg/actuation (Incruse Ellipta) 1 inh inhalation DAILY venlafaxine ER 75 mg PO DAILY Tobacco use date assessed: 09/01/24 Fall risk assessment: 2 + Falls in past year Last assessed Fall Risk: 09/01/24 Dental Screening Dental Screen Date: 09/01/24 Did you have a dental visit in the last 12 months?: Yes Did you have a dental problem in the last 6 months where you did not have access to dental care?: No Was dental information given to patient?: Patient has dentist HPI f/u meds HPI Details Patient is a 64-year-old male who presents today for a follow up. He has a significant past medical history of metastatic prostate ca, anxiety, depression, benign essential tremor, asthma, htn, borderline hld, severe yovani CV: Blood pressure today in the office is 114/70. He is currently on amlodipine 10 mg and labetalol 200 mg twice a day. Pulm: follows with [facility] sleep [facility] Heme/onc: Following with DF. Dx last year with prostate ca stage 4. Currently he is being treated with hormones, radiation therapy and has been experiencing some hot flashes and difficulty sleeping. He is trialing venlafaxine and gabapentin. He was also put on trazodone which is helpful for the sleep. He is still experiencing hot flashes. Pysch: As above. 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 He does get some pain but states that it is tolerable. PSA: being treated at for prostate ca Colonoscopy: UTD-2021- due in 2026 [facility] Surgical History (Updated 06/02/24 @ 10:49 by Ana Thrasher CMA) H/O vasectomy H/O tooth extraction Family History (Updated 06/02/24 @ 10:52 by Ana Thrasher CMA) Daughter FH: mental illness Father FH: mental illness Asthma High cholesterol Mother Asthma Alzheimer's dementia Maternal Grandmother Cancer of back Paternal Aunt Cardiovascular disease Social History (Updated 06/02/24 @ 09:58 by Ana Thrasher CMA) Housing: House Alcohol intake: never Patient Tobacco Use Status: Never used Tobacco e-Cigarette/Vaping Use: Never Used Second Hand Smoke Exposure: No service: No Current occupational status: employed and retired Cognitive needs: No Hearing needs: Yes (hearing aids) Vision needs: Yes (yes) Questionnaire PHQ-9 Over the last 2 weeks, how often have you been bothered by any of the following problems? 1. Little interest or pleasure in doing things: more than half the days 2. Feeling down, depressed, or hopeless: several days 3. Trouble falling or staying asleep, or sleeping too much: not at all 4. Feeling tired or having little energy: more than half the days 5. Poor appetite or overeating: not at all 6. Feeling bad about yourself - or that you are a failure or have let yourself or your family down: not at all 7. Trouble concentrating on things, such as reading the newspaper or watching television: not at all 8. Moving or speaking so slowly that other people could have noticed. Or the opposite - being so fidgety or restless that you have been moving around a lot more than usual: not at all 9. Thoughts that you would be better off or of hurting yourself in some way: not at all Total score: 5 Source: Developed by Drs. Jose Miguel Helms, Lissette Moreau, Efren Jacob and colleagues, with an educational kathy from [employer]. Thrive Questionnaire Date Thrive assessed: 07/13/24 I am a: Patient What is your living situation today?: I have a steady place to live Within the past 12 months, did the food you bought not last and you didn't have the money to get more?: Never true Within the past 12 months, did you worry whether your food would run out before you got money to buy more?: Never true Do you have trouble paying for medicines?: No Do you have trouble getting transportation to medical appointments?: No Do you have trouble paying your heating and electricity bill?: No Do you have trouble taking care of your child, family member or friend?: No Do you have trouble with day-to-day activities such as bathing, preparing meals, shopping, managing finances, etc.?: No Are you currently unemployed and looking for a job?: No Are you interested in more education?: No Please select the resources that you would like help with: None Currently or been in a relationship where the following occur: No concerns reported THRIVE Score: 0 AUDIT C Alcohol Use Questionnaire (AUDIT-C) 1. How often do you have a drink containing alcohol?: Never 3. How often do you have six or more drinks on one occasion?: Never Total Score: 0 DALLAS-7 AMB Questionnaire DALLAS-7 Date DALLAS - 7 assessed: 06/02/24 Source: Developed by Drs. Jose Miguel Helms, Lsisette Moreau, Efren Jacob and colleagues, with an educational kathy from [employer]. Physical exam (Primary Care) Vital Signs: Last Vital Signs Pulse 63 09/01/24 11:23 Resp 14 09/01/24 11:23 BP 114/70 09/01/24 11:23 Pulse Ox 96 09/01/24 11:23 Oxygen Delivery Method Room Air 09/01/24 11:23 BMI result Body Mass Index 35.9 Tobacco/Smoking Status: Tobacco use Status Tobacco use date assessed 09/01/24 09/01/24 11:23 Patient Tobacco Use Status Never used Tobacco 09/01/24 11:23 e-Cigarette/Vaping Use Never Used 09/01/24 11:23 PHQ-9: PHQ-9 Score PHQ-9: Total score 5 09/01/24 11:23 Thrive Assessment: Date of Thrive Assessment Date Thrive assessed 07/13/24 09/01/24 11:23 Currently or been in a relationship where the following occur: No concerns reported Const Orientation/consciousness: patient oriented x3 HENMT Ears: hearing grossly normal bilaterally Neck Thyroid: Thyroid normal Lymphatic: no lymphadenopathy noted Resp Auscultation: clear to auscultation bilaterally Cardio Rate: regular rate Rhythm: regular rhythm Heart sounds: S1 normal heart sound present and S2 normal heart sound present GI Inspection: Yes normal to inspection Palpation (GI): Soft to palpation and Other GI palpation findings present (nontender, no cva tenderness) Auscultation: normoactive bowel sounds Rectal Exam - Male: Yes deferred Skin General skin exam: no rashes or lesions noted Neuro General: patient oriented x3, gait normal and no focal motor deficits Results Reviewed Results Reviewed: Laboratory Tests 06/14/24 08:26 Sodium 140 Potassium 4.0 Chloride 106 Carbon Dioxide 27 Anion Gap 11 L BUN 14 Creatinine 1.04 Estimated GFR > 60 Fasting Glucose 91 Hemoglobin A1c % 4.9 Calcium 9.2 Magnesium 2.4 Total Bilirubin 0.5 AST 27 ALT 13 Alkaline Phosphatase 93 Total Protein 6.9 Albumin 4.1 Triglycerides 162 H Cholesterol 196 LDL Cholesterol, Calc 127 H HDL Cholesterol 37 L Coding Level of Care Code Est Pt Level 4 (89666) Complex EM visit Add On G2211 Diagnoses HTN (hypertension) I10 Adenocarcinoma of prostate, stage 4 C61 Hot flashes R23.2 Generalized anxiety disorder with panic attacks F41.1; F41.0 Assessment & Plan Assessment & Plan (1) HTN (hypertension): Code(s): I10 - Essential (primary) hypertension Category: Medical Plan: switch from labetaolol to metoprolol continue amlodipine 10 mg (2) Adenocarcinoma of prostate, stage 4: Code(s): C61 - Malignant neoplasm of prostate Category: Medical Plan: following with DF (3) Hot flashes: Code(s): R23.2 - Flushing Category: Medical Plan: he will follow up (4) Generalized anxiety disorder with panic attacks: Code(s): F41.1 - Generalized anxiety disorder; F41.0 - Panic disorder [episodic paroxysmal anxiety] Category: Medical Plan: Currently well-controlled. Continue current regimen Medications: New metoprolol succinate ER 25 mg PO DAILY 90 tabs 0RF Changed From gabapentin 100 mg PO QID To gabapentin 200 mg (2 x 100 mg) PO BID 360 caps 3RF 90 days Patient Instructions: call your [facility] doc about venlafaxine dosage switch from labetalol to metoprolol
[2024-09-01 11:23] VITALS: BP 114/70; PULSE 63; RESP 14; O2SAT 96; BMI 35.9
--- OUTSIDE RECORDS SUMMARY | 2024-09-01 11:55 | XMS_ITS ---
Author Name [facility] Organization Unknown History of Medication Use Medication Directions Dispensed Refills Start Date End Date Stat us ibuprofen (MOTRIN) tablet 800 mg 06/01/2024 06/01/2024 completed methocarbamol (ROBAXIN) 500 MG tablet Take 1 tablet (500 mg total) by mouth 4 (four) times a day. 06/01/2024 active gabapentin (NEURONTIN) 100 MG capsule Take 100-300 mg by mouth 4 (four) times a day. 05/25/2024 active venlafaxine (EFFEXOR-XR) 75 MG 24 hr capsule Take 75 mg by mouth daily. 05/25/2024 active Breo Ellipta 100-25 MCG/ACT inhaler Inhale 1 puff daily. 05/11/2024 active apalutamide (ERLEADA) 240 mg tablet Take 240 mg by mouth daily 12/30/2023 active tamsulosin (FLOMAX) 0.4 MG capsule Take 0.8 mg by mouth daily. 06/26/2023 active benzonatate (TESSALON) 200 MG capsule Take 1 capsule (200 mg total) by mouth 3 (three) times a day as needed for cough. 12/30/2022 active amLODIPine (NORVASC) 10 MG tablet Take 10 mg by mouth daily. 12/01/2022 active labetalol (NORMODYNE) 200 MG tablet Take 200 mg by mouth 2 (two) times a day. 11/26/2022 active losartan (COZAAR) 100 MG tablet Take 100 mg by mouth daily. 10/27/2022 active Problems Problem Status Onset Date Problem Type Date of Resolution Source Enthesopathy of right knee region active 2019-01-18 ProblemAct [facility] Steatosis of liver active 2023-10-01 ProblemAct [facility] Hypertension active 2023-10-01 ProblemAct [facility] At risk for falling active 2023-11-27 ProblemAct [facility] Rib injury active EncounterDiagnosisAct [facility] Injury of toe on right foot, initial encounter active EncounterDiagnosisAct [facility] Abrasion, left knee, initial encounter active EncounterDiagnosisAct H [facility] Prediabetes active 2023-10-01 ProblemAct [facility] Gastroesophageal reflux disease active 2023-10-01 ProblemAct [facility] Prostate cancer active 2023-10-01 ProblemAct [facility] Hoarseness active 2023-10-01 ProblemAct [facility] History of osteoporosis active EncounterDiagnosisAct [facility] Fall, initial encounter active EncounterDiagnosisAct [facility] Elevated PSA active 2024-06-01 ProblemAct [facility] Asthma active 2023-10-01 ProblemAct [facility] Sleep disturbance active 2024-06-01 ProblemAct CCT Obstructive sleep apnea syndrome active 2023-10-01 ProblemAct [facility] Encounters Encounter Type Encounter Reason Primary Diagnosis Location Date Ambulatory [facility] 06/01/2024 Ambulatory Other Other [facility] 06/01/2024 Ambulatory Acute upper respiratory infection, unspecified Acute upper respiratory infection, unspecified [facility] 12/30/2022 Care Team Organization Name Specialty Phone Email Start Date End Da [facility] PCP Optician Manager 06/04/2024 07/03/2024 [facility] NO PCP Primary Care 06/01/2024 [facility] PROVID[facility] Primary Care 06/01/2024 [facility] 12/31/2022 07/03/2024 [facility] 12/30/2022 12/30/2022
--- OUTSIDE RECORDS SUMMARY | 2024-09-01 11:55 | XMS_ITS | Clinical Summary ---
Author Organization [facility] Address [address] [place] [address] Care Team Providers Care Medical Dermatologist Name Role Phone Pcp, No Primary Care Provider Unavailabl e Allergies No known active allergies Medications amLODIPine (NORVASC) 10 MG tablet Take 10 mg by mouth daily. 12/01/2022 Active Breztri Aerosphere 160-9-4.8 MCG/ACT Aerosol 12/29/2022 Act [facility] labetalol (NORMODYNE) 200 MG tablet Take 200 mg by mouth 2 (two) times a day. 11/26/2022 Active losartan (COZAAR) 100 MG tablet Take 100 mg by mouth daily. 10/27/2022 Active traZODone (DESYREL) 50 MG tablet 12/27/2022 Active apalutamide (ERLEADA) 240 mg tablet Take 240 mg by mouth daily 12/30/2023 Active Breo Ellipta 100-25 MCG/ACT inhaler Inhale 1 puff daily. 05/11/2024 Active gabapentin (NEURONTIN) 100 MG capsule Take 100-300 mg by mouth 4 (four) times a day. 05/25/2024 Active venlafaxine (EFFEXOR-XR) 75 MG 24 hr capsule Take 75 mg by mouth daily. 05/25/2024 Active tamsulosin (FLOMAX) 0.4 MG capsule Take 0.8 mg by mouth daily. 06/26/2023 Active methocarbamol (ROBAXIN) 500 MG tabletIndication s:Rib injury Take 1 tablet (500 mg total) by mouth 4 (four) times a day. 20 tablet 06/01/2024 Active Active Problems Problem Noted Date Diagnosed Date Elevated PSA 06/01/2024 Sleep disturbance 06/01/2024 At risk for falling 11/27/2023 Asthma 10/01/2023 Gastroesophageal reflux disease 10/01/2023 Hoarseness 10/01/2023 Hypertension 10/01/2023 Obstructive sleep apnea syndrome 10/01/2023 Prostate cancer 10/01/2023 Prediabetes 10/01/2023 Steatosis of liver 10/01/2023 Enthesopathy of right knee region 01/18/2019 Social History Tobacco Use Types Packs/Day Years [...] 69 06/01/2024 2:42 PM EDT Temperature 36.9 C (98.4 F) 06/01/2024 2:42 PM EDT Respiratory Rate 20 06/01/2024 2:42 PM EDT [...] - Risk 60-74 years 1-dose series) 2019 COVID-19 Vaccine ( - season) 2023 02/19/2021, 06/18/2020, 05/27/2020 Influenza Vaccine 09/16/2024 01/21/2023, , 02/19/2021, Additional history exists Hepatitis B Vaccines Aged Out No long er eligible based on patient's age to complete this topic Insurance [employer] [facility] MEDICARE [employer] [facility] MEDICARE Care Teams Medical Dermatologist Relationship Specialty Start Date End Date Pcp, No PCP - General 06/01/24
== END 2024-09-01 12:03 | disposition home or self-care (01) ==
LOC: HO.HMCFM 11:05
PROVIDERS: PCP Physician Assistant; Visit Provider Physician Assistant
DX: I10 Essential (primary) hypertension (principal); C61 Malignant neoplasm of prostate; R23.2 Flushing; F41.1 Generalized anxiety disorder; F41.0 Panic disorder [episodic paroxysmal anxiety]

== ENCOUNTER → 2024-09-01 11:04 | Outpatient (BNVA) | payer MEDICARE, MEDICAID, SELFPAY | PROVIDERS: PCP Physician Assistant; Visit Provider Physician Assistant | DX: F41.1 Generalized anxiety disorder (principal); F41.0 Panic disorder [episodic paroxysmal anxiety]; F32.A Depression, unspecified; G25.0 Essential tremor; J45.909 Unspecified asthma, uncomplicated; I10 Essential (primary) hypertension; G47.33 Obstructive sleep apnea (adult) (pediatric); R23.2 Flushing; C61 Malignant neoplasm of prostate; C79.51 Secondary malignant neoplasm of bone; Z79.899 Other long term (current) drug therapy | CPT/HCPCS: 96127; 99212 ==

== ENCOUNTER 2024-10-06 10:53 | Outpatient (AMB) | payer MEDICARE, MEDICAID, SELFPAY ==
[2024-10-06 11:01] VITALS: BP 150/82; PULSE 73; RESP 14; TEMP 36.9; O2SAT 97; BMI 35.9
--- NOTE | 2024-10-06 11:01 | MHC.PC.OV ---
Vital Signs 10/06/24 11:01 10/06/24 11:07 Height 5 ft 10.08 in Weight 251 lb BMI 35.9 BP 150/82 H 144/82 H Blood Pressure Location Lt brachial Lt brachial Position Sitting Sitting Respiration 14 Pulse 73 Pulse Source Pulse Oximeter Temp 98.5 F Temp Source Oral Pulse Oximetry (%) 97 Oxygen Delivery Method Room Air Intake Visit Reasons: bp check Intake Note: Blood pressure follow up Duct Installer Required: No Allergies No Known Allergies Allergy (Verified 10/06/24 11:03) Medication List - Last Reconciled 10/06/24 by Lisa Valenzuela PA-C amlodipine 10 mg PO DAILY fluticasone furoate-vilanterol 100-25 mcg/dose (Breo Ellipta) 1 ea inhalation DAILY gabapentin 200 mg (2 x 100 mg) PO BID 90 days gabapentin 600 mg (2 x 300 mg) PO BEDTIME lorazepam 0.5 mg PO DAILY PRN 30 days metoprolol succinate ER 50 mg PO DAILY multivitamin 1 tab PO DAILY tamsulosin 0.8 mg PO DAILY trazodone 100 mg PO BEDTIME umeclidinium 62.5 mcg/actuation (Incruse Ellipta) 1 inh inhalation DAILY venlafaxine ER 75 mg PO DAILY Tobacco use date assessed: 10/06/24 Fall risk assessment: 2 + Falls in past year Last assessed Fall Risk: 10/06/24 Dental Screening Dental Screen Date: 09/01/24 HPI bp check HPI Details Patient is a 64-year-old male who presents today for a follow up. He has a significant past medical history of metastatic prostate ca, anxiety, depression, benign essential tremor, asthma, htn, borderline hld, severe yovani CV: Blood pressure today in the office is 144/82. He is currently on amlodipine 10 mg, losartan 100 mg and metoprolol 25 mg a day. -recently switch from labetalol Pulm: follows with [facility] sleep med Heme/onc: Following with DF. Dx last year with prostate ca stage 4. Currently he is being treated with hormones, radiation therapy and has been experiencing some hot flashes and difficulty sleeping. He is trialing venlafaxine and gabapentin. He was also put on trazodone which is helpful for the sleep. His hot flashes are a bit improved. Pysch: As above. 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 He does get some pain but states that it is tolerable. PSA: being treated at for prostate ca Colonoscopy: UTD-2021- due in 2026 [facility] Surgical History (Updated 06/02/24 @ 10:49 by Ana Thrasher CMA) H/O vasectomy H/O tooth extraction Family History (Updated 06/02/24 @ 10:52 by Ana Thrasher CMA) Daughter FH: mental illness Father FH: mental illness Asthma High cholesterol Mother Asthma Alzheimer's dementia Maternal Grandmother Cancer of back Paternal Aunt Cardiovascular disease Social History (Updated 06/02/24 @ 09:58 by Ana Thrasher CMA) Housing: House Alcohol intake: never Patient Tobacco Use Status: Never used Tobacco e-Cigarette/Vaping Use: Never Used Second Hand Smoke Exposure: No service: No Current occupational status: retired Cognitive needs: No Hearing needs: Yes (hearing aids) Vision needs: Yes (yes) Questionnaire Thrive Questionnaire Date Thrive assessed: 07/13/24 I am a: Patient What is your living situation today?: I have a steady place to live Within the past 12 months, did the food you bought not last and you didn't have the money to get more?: Never true Within the past 12 months, did you worry whether your food would run out before you got money to buy more?: Never true Do you have trouble paying for medicines?: No Do you have trouble getting transportation to medical appointments?: No Do you have trouble paying your heating and electricity bill?: No Do you have trouble taking care of your child, family member or friend?: No Do you have trouble with day-to-day activities such as bathing, preparing meals, shopping, managing finances, etc.?: No Are you currently unemployed and looking for a job?: No Are you interested in more education?: No Please select the resources that you would like help with: None Currently or been in a relationship where the following occur: No concerns reported THRIVE Score: 0 AUDIT C Alcohol Use Questionnaire (AUDIT-C) 1. How often do you have a drink containing alcohol?: Never 3. How often do you have six or more drinks on one occasion?: Never Total Score: 0 DALLAS-7 AMB Questionnaire DALLAS-7 Date DALLAS - 7 assessed: 06/02/24 Source: Developed by Drs. Jose Miguel Helms, Lissette Moreau, Efren Jacob and colleagues, with an educational kathy from [employer]. Physical exam (Primary Care) Tobacco/Smoking Status: Tobacco use Status Tobacco use date assessed 09/01/24 09/01/24 11:23 Patient Tobacco Use Status Never used Tobacco 09/01/24 11:23 e-Cigarette/Vaping Use Never Used 09/01/24 11:23 Thrive Assessment: Date of Thrive Assessment Date Thrive assessed 07/13/24 09/01/24 11:23 Currently or been in a relationship where the following occur: No concerns reported Const Orientation/consciousness: patient oriented x3 HENMT Ears: hearing grossly normal bilaterally Neck Thyroid: Thyroid normal Lymphatic: no lymphadenopathy noted Resp Auscultation: clear to auscultation bilaterally Cardio Rate: regular rate Rhythm: regular rhythm Heart sounds: S1 normal heart sound present and S2 normal heart sound present GI Inspection: Yes normal to inspection Palpation (GI): Soft to palpation and Other GI palpation findings present (nontender, no cva tenderness) Auscultation: normoactive bowel sounds Rectal Exam - Male: Yes deferred Skin General skin exam: no rashes or lesions noted Neuro General: patient oriented x3, gait normal and no focal motor deficits Coding Level of Care Code Est Pt Level 4 (57064) Complex EM visit Add On G2211 Diagnoses HTN (hypertension) I10 Generalized anxiety disorder with panic attacks F41.1; F41.0 Hot flashes R23.2 Assessment & Plan Assessment & Plan (1) HTN (hypertension): Code(s): I10 - Essential (primary) hypertension Category: Medical Plan: Increase metoprolol (2) Generalized anxiety disorder with panic attacks: Code(s): F41.1 - Generalized anxiety disorder; F41.0 - Panic disorder [episodic paroxysmal anxiety] Category: Medical Plan: Currently well-controlled (3) Hot flashes: Code(s): R23.2 - Flushing Category: Medical Plan: Improved Medications: New metoprolol succinate ER 50 mg PO DAILY 90 tabs 2RF amlodipine 10 mg PO DAILY 90 tabs 3RF losartan 100 mg PO DAILY 90 tabs 3RF tamsulosin 0.8 mg (2 x 0.4 mg) PO DAILY 180 caps 3RF Discontinued metoprolol succinate ER Discontinued Reason: Doctor's Order 25 mg PO DAILY 90 tabs 0RF
[2024-10-06 11:07] VITALS: BP 144/82
--- OUTSIDE RECORDS SUMMARY | 2024-10-06 12:26 | XMS_ITS | Clinical Summary ---
Author Organization [facility] Address [address] [place] [address] Care Team Providers Care Financial Examiner Name Role Phone Pcp, No Primary Care [...] age to complete this topic Insurance [employer] [facility] MEDICARE [employer] [facility] MEDICARE Care Teams Financial Examiner Relationship Specialty Start Date End Date Pcp, No PCP - General 06/01/24
--- OUTSIDE RECORDS SUMMARY | 2024-10-06 12:26 | XMS_ITS | Encounter Summary ---
Author Organization [facility] Address [address] [facility] [address] [place] [address] Phone Care Team Providers Care Healthcare Advisory Services Manager Name Role Phone Nick Easton MD Unavailable [phone] Ryan Holder MD, MEGAN Unavailable [phone] Doc Carrizales MD Unavailable [phone] Donald Underwood MD, PhD Unavailable + [phone] Bruna Nash [facility] Unavailable + [phone] Young FreireC Unavailable + [phone] Lisa Valenzuela Primary Care Provider +[phone]- [phone] Ingrsi Pedro RN Unavailable [email or web address] [email or web address] Shavon Johnson RN Unavailable [email or web address] [email or web address] Claudia Chaudhary MD, PhD Unavailable +[phone] Encounter Details Date Type Department Care Team (Late st Contact Info) Description 07/12/2024 Procedure Pass [facility], Ct Scan - [address] [id number] Social History Tobacco Use Types Packs/Day Years Used Date Smoking Tobacco: Never Smokeless Tobacco: Never Child or Family Care Answer Date Record ed Do you have problems with on e of the following making it difficult for you to work, study, or receive health care? No 09/11/2023 Education Answer Date Recorded Are you interested in help w ith more adult education (for example, completing high school, GED, job training, learning the [place]ib[place]ian language, technical skills, or developing parenting skills)? No 09/11/2023 Are you concerned about learning? Not on file 09/11/2023 No 09/11/2023 Yes 09/11/2023 Food Answer Date Recorded Within the past 6 months we worried whether our food would run out before we got money to buy more. Never True 09/11/2023 Within the past 6 months the food we bought just didn't last and we didn't have enough money to get more. Never True Residential Stability Answer Date Recor ded What is your housing situation today? I have shasta jenkins 09/11/2023 How many times have you move d in the past 12 months? Zero (I did not move) 09/11/2023 Paying for Meds Answer Date Recorded Do you have trouble paying for medicines? No 09/11/2023 Paying Utility Bills Answer Date Record ed Do you have trouble paying your heating or elect ricity bill? No 09/11/2023 Transportation Answer Date Recorded Has the lack of transportati on kept you from medical appointments or from getting medications? No 09/11/2023 Digital Access Answer Date Recorded No 08/26/2023 No 08/26/2023 Reliable internet access at home? Not on file 08/26/2023 Device with a working camera? Not on file Intimate Partner Violence Answer Date R ecorded Are you denied basic needs s uch as food, clothing, or medical care? No 07/12/2024 In the past 12 months have y ou been in a relationship with a person who hurts, threatens, or tries to control you? No 07/12/2024 Are you denied basic needs s uch as food, clothing, or medical care? No 07/12/2024 In the past 12 months have y ou been in a relationship with a person who hurts, threatens, or tries to control you? No 07/12/2024 Sex and Gender Information Value Date Recorded Sex Assigned at Male 08/26/2023 2:59 PM EDT Legal Sex Male 2:55 PM EDT Gender Identity Male 08/26/2023 2:59 PM EDT Sexual Orientation Straight 08/26/2023 2: 59 PM EDT Occupation Industry Job Start Date Job End Date retired Not on file Not on file Not on file documented as of this encounter Functional Status * Calculated C-SSRS Risk Score (Lifetime/Recent) Answer Date of Assessment Author No Risk Indicated 07/12/2024 8:09 PM EDT Latanya Farley RN * Im[place] Suicide Severity Rating Scale (Screener/Recent Self-Report) Question Answer Date of Assessment Author 1. Wish to be (Past 1 Month) No 07/12/2024 8:09 PM EDT Nancy Bourne RN 2. Non-Specific Active Suicidal Thoughts (Past 1 Month) No 07/12/2024 8:09 PM EDT Nancy Bourne RN 6. Suicidal Behavior (Lifetime) No 07/12/2024 8:09 PM EDT Nancy Bourne RN documented as of this encounter Plan of Treatment Upcoming Encounters Date Type Department Care Team (Late st Contact Info) Description 10/07/2024 11:30 AM EDT Telemedicine Psychosocial Oncology, [facility] [address] [address] Dhruv Lerner MD [address] [place] [address] [email or web address] 11/07/2024 1:00 PM EDT Office Visit [facility] Pulmonary, Allergy and Critical Care Medicine [address] [place] [address] [place] [address] Christopher Ott MD [address] [place] [address] 2[address] [place] [address] 11/09/2024 9:00 AM EDT Appointment Department of Radiation Oncology [address] [place] [address] Ryan Holder MD, MEGAN [address] [place] [address], [facility]- [address] [place] [address] [email or web address] Mulugeta Rivas, HEALTHCARE ADMINISTRATIVE ASSISTANT [address] [facility] ASB[address]-L2 [place] [address] [email or web address] 11/16/2024 2:30 PM EDT Blood Draw Laboratory Services, [facility] at [address] [address] Donald Underwood MD, PhD [address] [place] [address] [email or web address] 11/16/2024 3:30 PM EDT [facility], [facility] at [address] [address] Donald Underwood MD, PhD [address] [place] [address] [email or web address] 11/16/2024 4:15 PM EDT Infusion Infusion Therapy Services [facility] at [address] [address] Donald Underwood MD, PhD [address] [place] [address] [email or web address] documented as of this encounter Visit Diagnoses Not on filedocumented in this encounter Additional Health Concerns Assessment Noted Time PHQ-2 Depression Total Score: 2 07/13/19 25 3:00 PM EDT documented as of this encounter Care Teams Healthcare Advisory Services Manager Relationship Specialty Start Date End Date Lisa Valenzuela PA [address] [place] [phone] PCP - General Physician Movie Star 03/01/24 Nick Easton MD [address] [place] [address] Urology 08/27/23 Ryan Holder MD, MEGAN [address] [place] [address], ASB[address]- [address] [place] [address] [email or web address] Radiation Oncology 08/27/23 Doc Carrizales MD [address] [place] [address] [email or web address] Urology 08/27/23 Donald Underwood MD, PhD [address] [place] [address] [email or web address] Medical Oncology 08/27/23 Bruna [place], CONTROLLER MECHANIC [address] [place] [address] [email or web address] Core Maker Helper Oncology 11/25/23 Young Freire PA-C [address] [place] [phone] [email or web address] Physician Movie Star 12/29/23 Ingris Pedro, [address] [place] [address] [email or web address] Primary Infusion Nurse 03/01/24 Shavon Justice, [address] [place] [address] [email or web address] Primary Infusion Nurse 05/25/24 Claudia Chaudhary MD, PhD [address] [place] [address] [email or web address] Radiation Oncology 05/27/24 documented as of this encounter Additional Source Comments The information contained in this document represents components of the legal health record. It is not the complete legal health record.[facility]
== END 2024-10-06 11:24 | disposition home or self-care (01) ==
LOC: HO.HMCFM 10:54
PROVIDERS: PCP Physician Assistant; Visit Provider Physician Assistant
DX: I10 Essential (primary) hypertension (principal); F41.1 Generalized anxiety disorder; F41.0 Panic disorder [episodic paroxysmal anxiety]; R23.2 Flushing

== ENCOUNTER → 2024-10-06 10:53 | Outpatient (BNVA) | payer MEDICARE, MEDICAID, SELFPAY | PROVIDERS: PCP Physician Assistant; Visit Provider Physician Assistant | DX: I10 Essential (primary) hypertension (principal); F32.A Depression, unspecified; J45.909 Unspecified asthma, uncomplicated; F41.1 Generalized anxiety disorder; F41.0 Panic disorder [episodic paroxysmal anxiety]; R23.2 Flushing; G47.33 Obstructive sleep apnea (adult) (pediatric); C61 Malignant neoplasm of prostate | CPT/HCPCS: 99212 ==

== ENCOUNTER 2025-01-04 14:59 | Outpatient (AMB) | payer MEDICARE, MEDICAID, SELFPAY ==
--- NOTE | 2025-01-04 15:08 | A.OFFPC_ITS ---
Vital Signs 01/04/25 15:09 Weight 258 lb BP 136/84 Blood Pressure Location Lt brachial Position Sitting Respiration 14 Pulse 76 Pulse Source Pulse Oximeter Pulse Oximetry (%) 97 Oxygen Delivery Method Room Air Intake Visit Reasons: nov f/u meds /bp check Intake Note: Medication, htn follow up Foam Machine Operator Required: No Allergies No Known Allergies Allergy (Verified 01/04/25 15:09) Medication List - Last Reconciled 01/04/25 by Lisa Valenzuela PA-C amlodipine 10 mg PO DAILY fluticasone furoate-vilanterol 100-25 mcg/dose (Breo Ellipta) 1 ea inhalation DAILY gabapentin 200 mg (2 x 100 mg) PO BID 90 days gabapentin 900 mg PO BEDTIME lorazepam 0.5 mg PO DAILY PRN 30 days losartan 100 mg PO DAILY metoprolol succinate ER 50 mg PO DAILY multivitamin 1 tab PO DAILY oxybutynin chloride ER 10 mg PO DAILY tamsulosin 0.8 mg (2 x 0.4 mg) PO DAILY trazodone 100 mg PO BEDTIME umeclidinium 62.5 mcg/actuation (Incruse Ellipta) 1 inh inhalation DAILY venlafaxine ER 75 mg PO DAILY Tobacco use date assessed: 01/04/25 Dental Screening Dental Screen Date: 09/01/24 HPI nov f/u meds /bp check HPI Details Patient is a 64-year-old male who presents today for a follow up. He ramirez s a significant past medical history of metastatic prostate ca, anxiety, depression, benign essential tremor, asthma, htn, borderline hld, severe yovani Heent: For the last week he has had rhinorrhea, postnasal drip and a scratchy throat. It waxes and wanes in intensity. He did feel feverish but that has resolved. No cough, sinus pain, n/v/d. He did recently fly to [place] to visit his sister. CV: Blood pressure today in the office is 136/84. He is currently on amlodipine 10 mg, losartan 100 mg and metoprolol 50 mg a day. -recently switch from labetalol Pulm: follows with [facility] sleep med Heme/onc: Following with DF. Dx last year with prostate ca stage 4. Currently he is being treated with hormones, radiation therapy and has been experiencing some hot flashes and difficulty sleeping. He is trialing venlafaxine and gabapentin. He was also put on trazodone which is helpful for the sleep. His hot flashes are a bit improved. switched gabapentin 900 mg to evening for leg twitching Pysch: As above. His sister was recently diagnosed with stage 4 pancreatic ca. This has been hard on the family and they are trying to fly out frequently to visit her. 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 He does get some pain but states that it is tolerable. PSA: being treated at for prostate ca Colonoscopy: UTD-2021- due in 2026 [facility] Surgical History H/O vasectomy H/O tooth extraction Family History (Updated 01/04/25 @ 15:10 by Ana Thrasher CMA) Daughter FH: mental illness Father FH: mental illness Asthma High cholesterol Mother Asthma Alzheimer's dementia Maternal Grandmother Cancer of back Paternal Aunt Cardiovascular disease Sister Pancreatic cancer Social History (Updated 10/06/24 @ 11:03 by Ana Thrasher CMA) Housing: House Alcohol intake: never Patient Tobacco Use Status: Never used Tobacco e-Cigarette/Vaping Use: Never Used Second Hand Smoke Exposure: No service: No Current occupational status: retired Cognitive needs: No Hearing needs: Yes (hearing aids) Vision needs: Yes (yes) Questionnaire Thrive Questionnaire Date Thrive assessed: 07/13/24 I am a: Patient What is your living situation today?: I have a steady place to live Within the past 12 months, did the food you bought not last and you didn't have the money to get more?: Never true Within the past 12 months, did you worry whether your food would run out before you got money to buy more?: Never true Do you have trouble paying for medicines?: No Do you have trouble getting transportation to medical appointments?: No Do you have trouble paying your heating and electricity bill?: No Do you have trouble taking care of your child, family member or friend?: No Do you have trouble with day-to-day activities such as bathing, preparing meals, shopping, managing finances, etc.?: No Are you currently unemployed and looking for a job?: No Are you interested in more education?: No Please select the resources that you would like help with: None Currently or been in a relationship where the following occur: No concerns reported THRIVE Score: 0 DALLAS-7 AMB Questionnaire DALLAS-7 Date DALLAS - 7 assessed: 06/02/24 Source: Developed by Drs. Jose Miguel Helms, Lissette Moreau, Efren Jacob and colleagues, with an educational kathy from [employer] Physical exam (Primary Care) Vital Signs: Last Vital Signs Pulse 76 01/04/25 15:09 Resp 14 01/04/25 15:09 BP 136/84 01/04/25 15:09 Pulse Ox 97 01/04/25 15:09 Oxygen Delivery Method Room Air 01/04/25 15:09 Tobacco/Smoking Status: Tobacco use Status Tobacco use date assessed 01/04/25 01/04/25 15:16 Patient Tobacco Use Status Never used Tobacco 01/04/25 15:16 e-Cigarette/Vaping Use Never Used 01/04/25 15:16 Thrive Assessment: Date of Thrive Assessment Date Thrive assessed 07/13/24 01/04/25 15:16 Currently or been in a relationship where the following occur: No concerns reported Const Orientation/consciousness: patient oriented x3 HENMT Other: TMs dome-shaped a small air-fluid levels bilaterally. Nasal mucosa is erythematous. Clear drainage noted. No sinus tenderness present. Ears: hearing grossly normal bilaterally Neck Thyroid: Thyroid normal Lymphatic: no lymphadenopathy noted Resp Auscultation: clear to auscultation bilaterally Cardio Rate: regular rate Rhythm: regular rhythm Heart sounds: S1 normal heart sound present and S2 normal heart sound present GI Inspection: Yes normal to inspection Palpation (GI): Soft to palpation and Other GI palpation findings present (nontender, no cva tenderness) Auscultation: normoactive bowel sounds Rectal Exam - Male: Yes deferred Skin General skin exam: no rashes or lesions noted Neuro General: patient oriented x3, gait normal and no focal motor deficits Coding Level of Care Code Complex visit Add On G2211 Diagnoses Adenocarcinoma of prostate, stage 4 C61 HTN (hypertension) I10 Viral URI J06.9 Assessment & Plan Assessment & Plan (1) Adenocarcinoma of prostate, stage 4: Code(s): C61 - Malignant neoplasm of prostate Category: Medical Plan: following with DF. (2) HTN (hypertension): Code(s): I10 - Essential (primary) hypertension Category: Medical Plan: increase metoprolol to 100 mg (3) Viral URI: Code(s): J06.9 - Acute upper respiratory infection, unspecified Category: Medical Plan: swab ordered will try zyrtec and supportive measures will let me know if any issues Orders: Orders SARS-CoV2/FLU/RSV 01/04/25 C61 - Malignant neoplasm of prostate, I10 - Essential (primary) hypertension, J06.9 - Acute upper respiratory infection, unspecified, R09.89 - Other specified symptoms and signs involving the circulatory and respiratory systems Complete Blood Count Auto Diff 01/04/25 C61 - Malignant neoplasm of prostate, I10 - Essential (primary) hypertension, J06.9 - Acute upper respiratory inf ection, unspecified Comprehensive Emmett. Panel Fast 01/04/25 C61 - Malignant neoplasm of prostate, I10 - Essential (primary) hypertension, J06.9 - Acute upper respiratory inf ection, unspecified Lipid Panel 01/04/25 C61 - Malignant neoplasm of prostate, I10 - Essential (primary) hypertension, J06.9 - Acute upper respiratory infection, unspecified Hemoglobin A1c 01/04/25 R73.01 - Impaired fasting glucose TSH reflex Free T4 01/04/25 C61 - Malignant neoplasm of prostate, I10 - Essential (primary) hypertension, J06.9 - Acute upper respiratory infection, unspecified Medications: New metoprolol succinate ER 100 mg PO DAILY 90 tabs 0RF cetirizine (Zyrtec) 10 mg PO DAILY 30 tabs 0RF Changed From gabapentin 600 mg (2 x 300 mg) PO BEDTIME 180 caps 3RF To gabapentin 900 mg PO BEDTIME Discontinued metoprolol succinate ER Discontinued Reason: Doctor's Order 50 mg PO DAILY 90 tabs 2RF
[2025-01-04 15:09] VITALS: BP 136/84; PULSE 76; RESP 14; O2SAT 97
--- OUTSIDE RECORDS SUMMARY | 2025-01-05 03:36 | XMS_ITS | Clinical Summary ---
Author Organization [facility] Address [address] [place] [address] Care Team Providers Care Farrowing Manager Name Role Phone Pcp, No Primary Care [...] Health Maintenance Due Date Last Done Comments Advance Care Planning 1960 Hepatitis C Virus Screening 1960 HIV Screening 05/06/1972 DTaP/Tdap/Td Vaccines (1 - Tdap) 05/06/1978 Pneumococcal Vaccines 50+ (1 of 2 - PCV) 05/06/1978 Zoster (Shingles) Vaccine (1 of 2) 05/06/1978 Colonoscopy 05/06/2004 RSV Vaccine 50 years and older and Patients (1 - Risk 50-74 years 1-dose series) 05/06/2009 Influenza Vaccine 09/16/2024 01/21/2023, , 02/19/2021, Additional history exists COVID-19 Vaccine ( season) 2024 02/19/2021, 06/18/2020, 05/27/2020 Hepatitis B Vaccines Aged Out No long er eligible based on patient's age to complete this topic Insurance [facility]ENA [facility] MEDICARE [employer] [facility] MEDICARE Care Teams Farrowing Manager Relationship Specialty Start Date End Date Pcp, No PCP - General 06/01/24
--- OUTSIDE RECORDS SUMMARY | 2025-01-05 03:36 | XMS_ITS | Encounter Summary ---
Author Organization [facility] Address [address] [facility] [address] [place] [address] Phone Care Team Providers Care Commercial Real Estate Paralegal Name Role Phone Nick Easton MD Unavailable [phone] Ryan Holder MD, MEGAN Unavailable [phone] Doc Carrizales MD Unavailable [phone] Donald Underwood MD, PhD Unavailable + [phone] Bruna Zamora [facility] Unavailable + [phone] Young Freire-C Unavailable + [phone] Lisa Valenzuela Primary Care Provider +- [phone] Ingris Pedro RN Unavailable [email or web address] [email or web address] Shavon Johnson RN Unavailable [email or web address] [email or web address] Claudia Chaudhary MD, PhD Unavailable [phone] Xi Arenas RN Unavailable [phone] Encounter Details Date Type Department Care Team (Late st Contact Info) Description 07/12/2024 Procedure Pass [facility], Ct Scan - [address] [address] Social History Tobacco Use Types Packs/Day Years [...] high school, GED, job training, learning the Nigerian language, technical skills, or developing parenting skills)? [...] 8:09 PM EDT Latanya Farley RN * [place]acy Suicide Severity Rating Scale (Screener/Recent Self-Report) Question [...] Care Team (Late st Contact Info) Description 02/22/2025 1:20 PM EST Blood Draw Laboratory Services, [facility] at [address] [address] Donald Underwood MD, PhD [address] [place] [phone] [email or web address] 02/22/2025 2:00 PM EST [facility], [facility] at [address] [address] Moriah Morales PA-C [address] [place] [address] [email or web address] 02/22/2025 2:45 PM EST Infusion Infusion Therapy Services [place], [facility] at [address] [address] Donald Underwood MD, PhD [address] [address] [email or web address] 05/10/2025 1:45 PM EDT Appointment [facility], PET/CT [address] [place] [address] Donald Underwood MD, PhD [address] [place], [place] [address] [address] [email or web address] 05/17/2025 2:20 PM EDT Blood Draw Laboratory Services, [facility] at [address] [address] Donald Underwood MD, PhD [address] [address] [email or web address] 05/17/2025 3:00 PM EDT Office [facility], [facility] at [address] [address] Donald Underwood MD, PhD [address] [address] [email or web address] 05/17/2025 3:45 PM EDT Infusion Infusion Therapy Services [place], [facility] at [address] [address] Donald Underwood MD, PhD [facility] [address] [address] [email or web address] documented as of this encounter Visit Diagnoses Not on filedocumented in this encounter Additional Health Concerns Assessment Noted Time PHQ-2 Depression Total Score: 2 07/13/19 25 3:00 PM EDT documented as of this encounter Care Teams Commercial Real Estate Paralegal Relationship Specialty Start Date End Date Lisa Valenzuela PA [address] [place] [address] PCP - General Physician Vice President Of Advertising 03/01/24 Nick Easton MD [address] [place] [address] Urology 08/27/23 Ryan Holder MD, MEGAN [address] [place], [place] [address]- [address] [address] [email or web address] Radiation Oncology 08/27/23 Doc Carrizales MD [address] [place] [address] [email or web address] Urology 08/27/23 Donald Underwood MD, PhD [address] [place], [place] [address]cuauhtemocAt[facility] [address] [place] [address] [email or web address] Medical Oncology 08/27/23 Bruna Zamora, [facility] [address] [place] [address] [email or web address] Payroll Benefits Clerk Oncology 11/25/23 Young Freire PA-C [address] [place] [phone] [email or web address] Physician Vice President Of Advertising 12/29/23 Ingris Pedro RN [address] [place] [address] [email or web address] Primary Infusion Nurse 03/01/24 Shavon Justice RN [address] [place] [address] [email or web address] Primary Infusion Nurse 05/25/24 Claudia Chaudhary MD, PhD [address] [place] [address] [email or web address] Radiation Oncology 05/27/24 Xi Arenas RN [address] [place] [address] [email or web address] Associate Infusion Nurse 11/15/24 documented as of this encounter Additional Source Comments The information contained in this document represents components of the legal health record. It is not the complete legal health record.[facility]
--- OUTSIDE RECORDS SUMMARY | 2025-01-05 03:36 | XMS_ITS ---
Author Organization [facility] Address [address] [employer] [facility] [address] [place] [id number] Phone Care Team Providers Care Skin Piler Name Role Phone Nick Easton MD Unavailable [phone] Ryan Holder MD, MEGAN Unavailable [phone] Doc Carrizales MD Unavailable [phone] Donald Underwood MD, PhD Unavailable + [phone] Bruna Zamora [facility] Unavailable + [phone] Young Freire-C Unavailable + [phone] Lisa Valenzuela Primary Care Provider [phone]- [phone] Ingris Pedro RN Unavailable [email or web address] Shavon Johnson RN Unavailable [email or web address] Claudia Chaudhary MD, PhD Unavailable [phone] Xi Arenas RN Unavailable [phone] Active Problems Problem Noted Date Diagnosed Date PLMD (periodic limb movement disorder) RLS (restless legs syndrome) 12/27/2024 Vlad-Hernandez respiration 09/06/2024 At risk for falling 11/27/2023 Asthma 10/01/2023 Class 1 obesity 10/01/2023 Elevated BUN 10/01/2023 Gastroesophageal reflux disease 10/01/2023 Hoarseness 10/01/2023 Hypertension 10/01/2023 Obstructive sleep apnea syndrome 10/01/2023 Prediabetes 10/01/2023 Steatosis of liver 10/01/2023 Prostate cancer 10/01/2023 Assessment & Plan (11/16/2024 10:58 PM EDT): -PSMA PET 09/03/23 showed multifocal intense PSMA uptake in the prostate gland involvement of the seminal vesicles. Bilateral PSMA-avid internal iliac, right external iliac and right mesorectal lymph nodes most likely represent lymph node metastases; small more mildly PSMA-avid common iliac nodes may also represent metastases. Linear intense PSMA uptake in the left fourth rib with underlying sclerosis most likely represents a bone metastasis; subtle uptake in the right scapula and right iliac bone may represent early metastases (with low level of certainty); focal areas of PSMA uptake in the right 4th and left 7th ribs have CT correlates of lucency with sclerotic borders and most likely represent benign bone lesions. -initiated Eligard 45 mg [id number] 09/09/23 and initiated apalutamide 240 mg daily 10/16/23 -Initiated RT to pelvis & prostate 7000 cGy in 28 fx 12/21/23 - 01/28/24 -PSMA PET scan from 01/07/24 reported: 1. Overall similar distribution of radiotracer avid disease as evidenced by: persistent intense radiotracer avidity involving both sides of the prostate gland with extension into the seminal vesicles, left greater than right, consistent with prostate cancer, multiple radiotracer avid osseous lesions with several lesions demonstrating interval increased conspicuity and others demonstrating interval decreased avidity/increased sclerosis as detailed above, multiple radiotracer avid bilateral pelvic lymph nodes, several with persistent intense radiotracer avidity with interval decreased size, likely reflecting metastatic lymph nodes. -I previously counseled the patient that these scan results are difficult to interpret in the setting that this was performed as a Ga68 scan and the prior was performed as F18, and I agreed with Dr. Chaudhary that there was no rationale for treating any bony site(s) at the time -Repeat PSMA PET 05/19/24 showed overall improvement of PSMA avid tumor burden involving the prostate and bilateral pelvic lymph nodes. Most of the multifocal osseous tracer avid lesions are similar to prior as described, except for the PSMA uptake associated with the right iliac bone and right ischium lesions which has resolved. -This result increases the suspicion that the right iliac bone and right ischium lesions did represent metastatic prostate cancer, and that the other sites of uptake may represent false positives on [id number] PET. The scan is very reassuring for no evidence of PSA non-producing progression -PSA is 0.04 today 11/16/24 from 0.05 last check 08/22/24 from 0.06 prior check 05/25/24 from 0.09 (T 17) prior check 03/01/24, 0.56 (T 41) prior check 12/29/23, which is very reassuring -Will repeat PET 05/2025 (~1 year from prior) -If PSA decreases to undetectable, would plan to discontinue treatment after 24 months of hormonal therapy (08/2025) if PET shows no active disease -DXA 03/01/24 showed T-scores -0.2 AP Spine (L1-L4), -1.2 left femoral neck, -0.6 left total hip. He confirms taking Ca+Vitamin D supplementation for now, and will repeat > 2 years from prior -Just started gabapentin 900 mg nightly and oxybutynin 5 mg for bothersome sweating. If this remains problematic, can try increasing venlafaxine to 150 mg. If still an issue, can also increase oxybutynin to 10 mg -being followed by [facility] to help Mr. Kingston and his adjust to his illess and side effects he is experiencing. -He completed neuro-psych testing- neurocognitive profile reflects broadly intact cognitive abilities, with a pattern of relative weaknesses consistent with frontal network disruption. Cognitive rehab recommended (being offered virtually through our [facility]). He will f/u with neuro-psych if he would like to participate. -Lupron 22.5 mg IM depot given today 11/16/24; continue q 12 weeks. If PSA becomes undetectable in the future, could consider stopping leuprolide after minimum 18 months of treatment for faster testosterone recovery as compared to treating for the full 24 months Assessment & Plan (08/23/2024 10:33 AM EDT): -PSMA PET 09/03/23 showed multifocal intense PSMA uptake in the prostate gland involvement of the seminal vesicles. Bilateral PSMA-avid internal iliac, right external iliac and right mesorectal lymph nodes most likely represent lymph node metastases; small more mildly PSMA-avid common iliac nodes may also represent metastases. Linear intense PSMA uptake in the left fourth rib with underlying sclerosis most likely represents a bone metastasis; subtle uptake in the right scapula and right iliac bone may represent early metastases (with low level of certainty); focal areas of PSMA uptake in the right 4th and left 7th ribs have CT correlates of lucency with sclerotic borders and most likely represent benign bone lesions. -initiated Eligard 45 mg [id number] 09/09/23 and initiated apalutamide 240 mg daily 10/16/23 -Initiated RT to pelvis & prostate 7000 cGy in 28 fx 12/21/23 - 01/28/24 -PSMA PET scan from 01/07/24 reported: 1. Overall similar distribution of radiotracer avid disease as evidenced by: persistent intense radiotracer avidity involving both sides of the prostate gland with extension into the seminal vesicles, left greater than right, consistent with prostate cancer, multiple radiotracer avid osseous lesions with several lesions demonstrating interval increased conspicuity and others demonstrating interval decreased avidity/increased sclerosis as detailed above, multiple radiotracer avid bilateral pelvic lymph nodes, several with persistent intense radiotracer avidity with interval decreased size, likely reflecting metastatic lymph nodes. -I previously counseled the patient that these scan results are difficult to interpret in the setting that this was performed as a Ga68 scan and the prior was performed as F18, and I agreed with Dr. Chaudhary that there was no rationale for treating any bony site(s) at the time -Repeat PSMA PET 05/19/24 showed overall improvement of PSMA avid tumor burden involving the prostate and bilateral pelvic lymph nodes. Most of the multifocal osseous tracer avid lesions are similar to prior as described, except for the PSMA uptake associated with the right iliac bone and right ischium lesions which has resolved. -This result increases the suspicion that the right iliac bone and right ischium lesions did represent metastatic prostate cancer, and that the other sites of uptake may represent false positives on [id number] PET. The scan is very reassuring for no evidence of PSA non-producing progression -PSA is 0.05 today 08/22/24 from 0.06 last check 05/25/24 from 0.09 (T 17) prior check 03/01/24, 0.56 (T 41) prior check 12/29/23, which is very reassuring -If PSA decreases to undetectable, would plan to discontinue treatment after 24 months of hormonal therapy (08/2025) with repeat PSMA PET beforehand -DXA 03/01/24 showed T-scores -0.2 AP Spine (L1-L4), -1.2 left femoral neck, -0.6 left total hip. He confirms taking Ca+Vitamin D supplementation for now, and will repeat > 2 years from prior -His PCP has increased his venlafaxine to 75mg daily due to worsening anxiety with lowering his dose. His PCP will take over prescribing gabapentin. He will monitor for improvement in hot flashes with increasing gabapentin to 300mg/300mg/600mg. -He has follow up with his PCP later this month and will follow up on these medications, tremor, and blood pressure management. He is also seeing psychonc. - We discussed trying acupuncture locally for management of hot flashes. I would not recommend additional medication at this time. -being followed by [facility] to help Mr. Kingston and his adjust to his illess and side effects he is experiencing. -He completed neuro-psych testing- neurocognitive profile reflects broadly intact cognitive abilities, with a pattern of relative weaknesses consistent with frontal network disruption. Cognitive rehab recommended (being offered virtually through our [facility]). He will f/u with neuro-psych if he would like to participate. -Lupron 22.5 mg IM depot given today 08/22/24; continue q 12 weeks. If PSA becomes undetectable in the future, could consider stopping leuprolide after minimum 18 months of treatment for faster testosterone recovery as compared to treating for the full 24 months Assessment & Plan (05/25/2024 10:13 PM EDT): -PSMA PET 09/03/23 showed multifocal intense PSMA uptake in the prostate gland involvement of the seminal vesicles. Bilateral PSMA-avid internal iliac, right external iliac and right mesorectal lymph nodes most likely represent lymph node metastases; small more mildly PSMA-avid common iliac nodes may also represent metastases. Linear intense PSMA uptake in the left fourth rib with underlying sclerosis most likely represents a bone metastasis; subtle uptake in the right scapula and right iliac bone may represent early metastases (with low level of certainty); focal areas of PSMA uptake in the right 4th and left 7th ribs have CT correlates of lucency with sclerotic borders and most likely represent benign bone lesions. -initiated Eligard 45 mg [id number] 09/09/23 and initiated apalutamide 240 mg daily 10/16/23 -Initiated RT to pelvis & prostate 7000 cGy in 28 fx 12/21/23 - 01/28/24 -PSMA PET scan from 01/07/24 reported: 1. Overall similar distribution of radiotracer avid disease as evidenced by: persistent intense radiotracer avidity involving both sides of the prostate gland with extension into the seminal vesicles, left greater than right, consistent with prostate cancer, multiple radiotracer avid osseous lesions with several lesions demonstrating interval increased conspicuity and others demonstrating interval decreased avidity/increased sclerosis as detailed above, multiple radiotracer avid bilateral pelvic lymph nodes, several with persistent intense radiotracer avidity with interval decreased size, likely reflecting metastatic lymph nodes. -I previously counseled the patient that these scan results are difficult to interpret in the setting that this was performed as a Ga68 scan and the prior was performed as F18, and I agreed with Dr. Chaudhary that there was no rationale for treating any bony site(s) at the time -Repeat PSMA PET 05/19/24 showed overall improvement of PSMA avid tumor burden involving the prostate and bilateral pelvic lymph nodes. Most of the multifocal osseous tracer avid lesions are similar to prior as described, except for the PSMA uptake associated with the right iliac bone and right ischium lesions which has resolved. -This result increases the suspicion that the right iliac bone and right ischium lesions did represent metastatic prostate cancer, and that the other sites of uptake may represent false positives on [id number] PET. The scan is very reassuring for no evidence of PSA non-producing progression -PSA is 0.06 today 05/25/24 from 0.09 (T 17) last check 03/01/24, 0.56 (T 41) prior check 12/29/23, which is very reassuring -TSH remains normal at 2.50 -If PSA decreases to undetectable, would plan to discontinue treatment after 24 months of hormonal therapy (08/2025) with repeat PSMA PET beforehand -DXA 03/01/24 showed T-scores -0.2 AP Spine (L1-L4), -1.2 left femoral neck, -0.6 left total hip. He confirms taking Ca+Vitamin D supplementation for now, and will repeat > 2 years from prior -Has been taking venlafaxine 150 mg PO daily without much effect on hot flashes currently. I suggested he can try crosstitrating with gabapentin in case the latter is more effective. He can decrease venlafaxine to 75 mg for now, and add gabapentin 100 mg/100 mg/300 mg TID. Gabapentin may also help with leg shaking issue -He was seen by the [facility] to discuss non-pharmacologic approaches to symptom management. I do think he might benefit from consideration of GLP-1 agonist given weight gain -being followed by [facility] to help Mr. Kingston and his adjust to his illess and side effects he is experiencing. -He completed neuro-psych testing- neurocognitive profile reflects broadly intact cognitive abilities, with a pattern of relative weaknesses consistent with frontal network disruption. Cognitive rehab recommended (being offered virtually through our [facility]). He will f/u with neuro-psych if he would like to participate. -Lupron 22.5 mg IM depot given today 05/25/24; continue q 12 weeks. If PSA becomes undetectable in the future, could consider stopping leuprolide after minimum 18 months of treatment for faster testosterone recovery as compared to treating for the full 24 months Assessment & Plan (03/01/2024 4:49 PM EST): -PSMA PET 09/03/23 showed multifocal intense PSMA uptake in the prostate gland involvement of the seminal vesicles. Bilateral PSMA-avid internal iliac, right external iliac and right mesorectal lymph nodes most likely represent lymph node metastases; small more mildly PSMA-avid common iliac nodes may also represent metastases. Linear intense PSMA uptake in the left fourth rib with underlying sclerosis most likely represents a bone metastasis; subtle uptake in the right scapula and right iliac bone may represent early metastases (with low level of certainty); focal areas of PSMA uptake in the right 4th and left 7th ribs have CT correlates of lucency with sclerotic borders and most likely represent benign bone lesions. -initiated Eligard 45 mg [id number] 09/09/23 and initiated apalutamide 240 mg daily 10/16/23 -Initiated RT to pelvis & prostate 7000 cGy in 28 fx 12/21/23 - 01/28/24 -Dr. Claudia Chaudhary reviewed the images from PSMA PET 09/03/23 in consideration of SBRT. The plan at that time was for SBRT to the L rib 4, but to repeat the PSMA PET scan in December to help determine if the other sites (R scapula, R iliac bone, R rib 4 and L rib 7) would also require treatment since sites of metastatic prostate cancer would be expected to undergo radiographic change (with decrease in tracer uptake on PET and increased sclerosis in surrounding bone) with effective systemic therapy. -PSMA PET scan from 01/07/24 addended: 1. Overall similar distribution of radiotracer avid disease as evidenced by: persistent intense radiotracer avidity involving both sides of the prostate gland with extension into the seminal vesicles, left greater than right, consistent with prostate cancer, multiple radiotracer avid osseous lesions with several lesions demonstrating interval increased conspicuity and others demonstrating interval decreased avidity/increased sclerosis as detailed above, multiple radiotracer avid bilateral pelvic lymph nodes, several with persistent intense radiotracer avidity with interval decreased size, likely reflecting metastatic lymph nodes. -these scan results are difficult to interpret in the setting that this was performed as a Ga68 scan and the prior was performed as F18, so they are not directly comparable. There is limited data around post-treatment changes on PSMA PET imaging at early time points after starting hormonal therapy, and there is data that AR antagonists can actually increase PSMA expression. There is no data to recommend change in systemic therapy based on changes on PSMA PET imaging alone. -I counseled the patient and his that I agree with Dr. Chaudhary that there is no rationale for treating any bony site(s) at this time. However, we could consider RT to oligopersistent site(s) detected on future PET imaging. -We also discussed the role of docetaxel chemotherapy. There is no evidence that adding docetaxel to a backbone of ADT + a potent AR pathway inhibitor improves clinical outcomes in metastatic hormone-sensitive prostate cancer. The benefit of adding docetaxel to ADT alone in [facility] was only seen in patients with high volume metastatic disease by conventional imaging. In the absence of convincing data around benefit from docetaxel in this setting and with the understanding that this would introduce earlier toxicity, I would favor reserving chemotherapy for castration-resistant progression. -Phan and Sarah express understanding and reassurance, and we will continue to monitor closely with plan to repeat Ga68 ([employer]) PSMA PET in 6 months (~June 2024), or earlier if PSA begins to rise before then. -PSA is down to 0.09 (T 17) today 03/01/24, from PSA 0.56 (T 41) 12/29/23 from 0.96 (T 6) last check 11/18/23 and from 23.0 08/06/23 prior to starting hormonal therapy, which is very reassuring -TSH remains normal at 3.09 -If PSA decreases to undetectable, would plan to discontinue treatment after 24 months of hormonal therapy (08/2025) with repeat PSMA PET beforehand with possibility of long treatment-free interval if there are no active untreated sites of disease -The patient will need DEXA to assess need for bone strengthening agent to prevent ADT-related bone loss - this is scheduled for later today,03/01/24. He confirms taking Ca+Vitamin D supplementation for now with consideration of denosumab or zoledronic acid if DEXA shows osteoporosis/osteopenia. -I placed a referral to [facility] [employer] for germline testing. Testing was sent 12/24/23 with results revealing: The DNA analysis, done at [place], did not identify a meaningful change (mutations). -he notes baseline constipation and hemorrhoids for which he has seen a imcu nurse at [facility]. Per pt banding of his hemorrhoids was discussed, but he did not want to pursue at this time. -Continue venlafaxine 150 mg PO daily -He was seen by the [facility] to discuss acupuncture in the treatment of hot flashes and other complementary medicine options available -being followed by [facility] to help Mr. Kingston and his adjust to his illess and side effects he is experiencing. -He completed neuro-psych testing- neurocognitive profile reflects broadly intact cognitive abilities, with a pattern of relative weaknesses consistent with frontal network disruption. Cognitive rehab recommended (being offered virtually through our [facility]). He will f/u with neuro-psych if he would like to participate. -Lupron 22.5 mg IM depot given today 03/01/24; continue q 12 weeks. If PSA becomes undetectable in the future, could consider stopping leuprolide after 21 months of treatment or switching to monthly dosing near the end of the planned 2 years of treatment Assessment & Plan (12/31/2023 8:45 AM EST): -PSMA PET 09/03/23 showed multifocal intense PSMA uptake in the prostate gland involvement of the seminal vesicles. Bilateral PSMA-avid internal iliac, right external iliac and right mesorectal lymph nodes most likely represent lymph node metastases; small more mildly PSMA-avid common iliac nodes may also represent metastases. Linear intense PSMA uptake in the left fourth rib with underlying sclerosis most likely represents a bone metastasis; subtle uptake in the right scapula and right iliac bone may represent early metastases (with low level of certainty); focal areas of PSMA uptake in the right 4th and left 7th ribs have CT correlates of lucency with sclerotic borders and most likely represent benign bone lesions. -initiated Eligard 45 mg [id number] 09/09/23 and initiated apalutamide 240 mg daily 10/16/23 -Initiated RT to pelvis & prostate 7000 cGy in 28 fx 12/21/23 - -Dr. Claudia Chaudhary reviewed the images from PSMA PET 09/03/23 in consideration of SBRT. The plan at that time was for SBRT to the L rib 4, but to repeat the PSMA PET scan in December to help determine if the other sites (R scapula, R iliac bone, R rib 4 and L rib 7) would also require treatment since sites of metastatic prostate cancer would be expected to undergo radiographic change (with decrease in tracer uptake on PET and increased sclerosis in surrounding bone) with effective systemic therapy. -PSA is down to 0.56 (T 41) 12/29/23 from 0.96 (T 6) last check 11/18/23 and from 23.0 08/06/23 prior to starting hormonal therapy, which is very reassuring -TSH remains normal at 2.11 -He was planned for repeat PSMA PET imaging yesterday 12/29/23, but this could not be performed due to quality issue with the tracer and needs to be rescheduled. I suggested that it may make the most sense for him to reschedule his visit with Dr. Chaudhary until after completion of the repeat PET -I discussed with the patient and his that I would not recommend docetaxel in this setting as there is no evidence in the literature that this leads to prolongation of survival in patients with low volume metastatic disease by conventional imaging, nor is there evidence that it would more successfully ablate micrometastatic disease compared to ADT+apalutamide -If PSA decreases to undetectable, would plan to discontinue treatment after 24 months of hormonal therapy (08/2025) with repeat PSMA PET beforehand with possibility of long treatment-free interval if there are no active untreated sites of disease -The patient will need DEXA to assess need for bone strengthening agent to prevent ADT-related bone loss - this is scheduled for 03/01/24. He confirms taking Ca+Vitamin D supplementation for now with consideration of denosumab or zoledronic acid if DEXA shows osteoporosis/osteopenia. -I placed a referral to [facility] for germline testing. Testing was sent 12/24/23 with results pending -he notes baseline constipation and hemorrhoids for which he has seen a imcu nurse at [facility]. Per pt banding of his hemorrhoids was discussed, but he did not want to pursue at this time. As above, his stools are looser since starting apalutamide. -Continue to titrate up venlafaxine - will increase to 112.5 mg daily for now and after 1 week increase to 150 mg daily -We placed referral to the [facility] to discuss acupuncture in the treatment of hot flashes and other complementary medicine options available to the patient that he could utilize while staying at [facility] during radiation, which he is interested in pursuing -We previously placed a referral to [facility] to help Mr. Kingston and his adjust to his illess and side effects he is experiencing. -He notes trouble with multi-tasking and we placed a referral for neuropsych testing. -he notes blurry vision. I discussed that this is not a common side effect with ADT and recommended he sees his eye doctor. -he will discuss management of increased urinary frequency with the radiation oncology team -Lupron 45 mg 09/09/23, next due on or after 02/24/24. Will switch to leuprolide 22.5 mg q6itsvyw at that time. If PSA becomes undetectable in the future, could consider stopping leuprolide after 21 months of treatment or switching to monthly dosing near the end of the planned 2 years of treatment Assessment & Plan (11/18/2023 3:51 PM EDT): -This patient has metastatic prostate cancer to bone based on [facility] radiology interpretation of PSMA PET from 09/03/23. -The standard of care for initial treatment of metastatic prostate cancer has been androgen deprivation therapy (ADT). I counseled the patient that this modality almost universally leads to tumor responses, but the degree and duration of response can be variable and is an important factor in overall survival. -Given this patient's metastatic disease, results from Scotty carr al. N Engl J Med. 2013 May 20;368 (04):[id number] would suggest that intermittent ADT could lead to inferior oncologic outcomes as compared to continuous, but with improved quality of life - intermittent ADT could be considered depending on tolerability of therapy and the depth of response, with consideration of re-initiation at a lower PSA threshold than would be considered for non-metastatic disease. -We discussed potential risks of ADT, including fatigue, hot flashes, gynecomastia, loss of libido and sexual function, weight gain, muscle and bone loss, and insulin resistance and hyperlipidemia. He already received leuprolide 45 mg depot 09/09/23 -The CHAARTED study demonstrated survival benefit to early docetaxel; survival benefit has also been seen with early abiraterone (LATITUDE, STAMPEDE), enzalutamide (ENZAMET) and apalutamide (TITAN). The PEACE-1 and ARASENS trials demonstrated that the addition of potent AR pathway inhibitor (abiraterone and darolutamide, respectively) to ADT+docetaxel prolongs radiographic progression-free survival and overall survival compared to ADT+docetaxel alone, but these trials do not address the relative benefit of adding docetaxel to ADT + ARPI. Given possibly > 4 bone metastases seen on PSMA PET imaging, he could reasonably be managed as having high volume disease by CHAARTED criteria for which upfront docetaxel could be considered. -Abiraterone/prednisone and darolutamide are both reasonable options in combination with docetaxel. However, in his case I may favor darolutamide over abiraterone as the requirement for co-administration of prednisone with the latter agent may worsen prediabetes as well as increase risk of weight gain that could exacerbate other comorbid conditions with obesity (including hypertension, hepatic steatosis, and obstructive sleep apnea). -Darolutamide was not covered by his insurance, so he began apalutamide 240 mg daily on 10/16/23. Looser stools once per day started around this time. I recommended he add a fiber supplement to his diet and let us know if that is not effective and we can discuss other options. 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 He prefers to obtain this through [facility] and I placed referral and he will schedule at check out. He confirms taking Ca+Vitamin D supplementation for now with consideration of denosumab or zoledronic acid if DEXA shows osteoporosis/osteopenia. -As the PEACE-1 trial demonstrated prolongation of time to CRPC and time to serious event with prostate radiation even in patients with high volume disease, I would favor radiation to prostate and pelvic lymph nodes whether or not all sites of PSMA PET uptake in the bone are felt to represent metastatic prostate cancer. -he met with Dr. Holder who will plan radiation to the prostate and pelvic lymph nodes. He notes he plans to stay at [facility] during this. -We would also consider radiation to sites of PSMA uptake in the bone for maximal cytoreduction to allow for treatment discontinuation in the future with the possibility of prolonged treatment-free interval afterwards. -[facility] radiology review of OSH PSMA PET 09/03/23 is reported as showing Linear intense PSMA uptake in the left fourth rib with underlying sclerosis most likely represents a bone metastasis; subtle uptake in the right scapula and right iliac bone may represent early metastases (with low level of certainty); focal areas of PSMA uptake in the right 4th and left 7th ribs have CT correlates of lucency with sclerotic borders and most likely represent benign bone lesions. Dr. Claudia Chaudhary reviewed the images in consideration of SBRT. The plan at this time is for SBRT to the L rib 4, but to repeat the PSMA PET scan in December to help determine if the other sites (R scapula, R iliac bone, R rib 4 and L rib 7) would also require treatment. Sites of metastatic prostate cancer would be expected to undergo radiographic change (with decrease in tracer uptake on PET and increased sclerosis in surrounding bone) with effective systemic therapy. -I placed a referral to [facility] genetics for germline testing. -he notes baseline constipation and hemorrhoids for which he has seen a imcu nurse at [facility]. Per pt banding of his hemorrhoids was discussed, but he did not want to pursue at this time. As above, his stools are looser since starting apalutamide. -I prescribed venlafaxine 37.5 mg PO daily to local pharmacy to treat hot flashes and depression. I asked him to update us in 2 weeks and could consider up-titrating to 75 mg daily. -I placed referral to the [facility] to discuss acupuncture in the treatment of hot flashes and other complementary medicine options available to the patient that he could utilize while staying at [facility] during radiation. -I placed a referral to [facility] to help Mr. Kingston and his adjust to his illess and side effects he is experiencing. -He notes trouble with multi-tasking and I placed a referral for neuropsych testing. -he notes blurry vision. I discussed that this is not a common side effect with ADT and recommended he sees his eye doctor. -he notes unsteadiness with position changes (he noted it when getting up from exam chair). His Cr was slightly elevated today (Cr 1.26) suggesting possible mild dehydration so I recommended he increase his PO intake. Of note, flomax could also be contributing and causing orthostatic hypotention so if unsteadiness does not improve with increased fluid, I would recommended decreasing flomax from 0.8 mg to 0.4 mg PO daily. Assessment & Plan (10/02/2023 6:56 PM EDT): -This patient has metastatic prostate cancer to bone based on [facility] radiology interpretation of PSMA PET from 09/03/23 -The standard of care for initial treatment of metastatic prostate cancer has been androgen deprivation therapy (ADT). I counseled the patient that this modality almost universally leads to tumor responses, but the degree and duration of response can be variable and is an important factor in overall survival. -Given this patient's metastatic disease, results from Scotty carr al. N Engl J Med. 2013 May 4;368 (14):1314-25 would suggest that intermittent ADT could lead to inferior oncologic outcomes as compared to continuous, but with improved quality of life - intermittent ADT could be considered depending on tolerability of therapy and the depth of response, with consideration of re-initiation at a lower PSA threshold than would be considered for non-metastatic disease. -We discussed potential risks of ADT, including fatigue, hot flashes, gynecomastia, loss of libido and sexual function, weight gain, muscle and bone loss, and insulin resistance and hyperlipidemia. I advised the patient that there are potential pharmacological treatments for hot flashes and mood changes if either become severe. He already received leuprolide 45 mg depot 09/09/23 -The CHAARTED study demonstrated survival benefit to early docetaxel; survival benefit has also been seen with early abiraterone (LATITUDE, STAMPEDE), enzalutamide (ENZAMET) and apalutamide (TITAN). The PEACE-1 and ARASENS trials demonstrated that the addition of potent AR pathway inhibitor (abiraterone and darolutamide, respectively) to ADT+docetaxel prolongs radiographic progression-free survival and overall survival compared to ADT+docetaxel alone, but these trials do not address the relative benefit of adding docetaxel to ADT + ARPI. Given possibly > 4 bone metastases seen on PSMA PET imaging, he could reasonably be managed as having high volume disease by CHAARTED criteria for which upfront docetaxel could be considered. -Abiraterone/prednisone and darolutamide are both reasonable options in combination with docetaxel. However, in his case I may favor darolutamide over abiraterone as the requirement for co-administration of prednisone with the latter agent may worsen prediabetes as well as increase risk of weight gain that could exacerbate other comorbid conditions with obesity (including hypertension, hepatic steatosis, and obstructive sleep apnea). I provided teaching sheet on darolutamide today and sent Rx to the [facility] to assess co-pay -there is no role for bone anti-resorptive agent for prevention of skeletal- related events and this point given findings from CALGB 72560 demonstrating no decrease in SREs for zoledronic acid in castration-sensitive prostate cancer -However, the patient will need DEXA to assess need for bone strengthening agent to prevent ADT-related bone loss, which I recommended he obtain locally. Will need Ca+Vitamin D supplementation for now with consideration of denosumab or zoledronic acid if DEXA shows osteoporosis/osteopenia -As the PEACE-1 trial demonstrated prolongation of time to CRPC and time to serious event with prostate radiation even in patients with high volume disease, I would favor radiation to prostate and pelvic lymph nodes whether or not all sites of PSMA PET uptake in the bone are felt to represent metastatic prostate cancer. -We would also consider radiation to sites of PSMA uptake in the bone for maximal cytoreduction to allow for treatment discontinuation in the future with the possibility of prolonged treatment-free interval afterwards. [facility] radiology review of OSH PSMA PET 09/03/23 is reported as showing Linear intense PSMA uptake in the left fourth rib with underlying sclerosis most likely represents a bone metastasis; subtle uptake in the right scapula and right iliac bone may represent early metastases (with low level of certainty); focal areas of PSMA uptake in the right 4th and left 7th ribs have CT correlates of lucency with sclerotic borders and most likely represent benign bone lesions. Given diagnostic uncertainty, reasonable options include 1) treating with systemic therapy with radiation to prostate + pelvis but not to metastatic sites in the bone 2) treating only the most suspicious site of disease in left 4th rib with SBRT while leaving the other 4 lesions untreated 3) treating all five possible metastatic sites with SBRT or 4) pursuing further imaging workup to better assess likelihood of each lesion representing a metastatic focus. For option #4, this would involve MRI of the chest wall now, proceeding with RT to prostate + pelvis, then repeating MRI chest wall, MRI pelvis, and PSMA PET after ~6 months of systemic therapy - sites of metastatic prostate cancer would be expected to undergo radiographic change (with decrease in tracer uptake on PET and increased sclerosis in surrounding bone) with effective systemic therapy. He will discuss these options in detail with Dr. Ryan Holder on Thursday10/05/23. -The patient states that he has already undergone germline genetic testing for inherited pathogenic variant due to family history of breast cancer. He is not sure if this was BRCA1/2-only testing or panel testing, but he will try to send us the report. If he has not had panel testing then we will request this at an upcoming visit -RTC 1 month and 3 months after starting darolutamide for symptom/laboratory check with consideration of the addition of docetaxel if he does not experience a favorable response to ADT + darolutamide Enthesopathy of right knee region 01/18/2019 Current Treatment and Therapy Plans APALUTAMIDE* Plan Start Date:10/07/2023 Plan Provider:Donald Underwood MD, PhD Linked Problems Prostate cancer Treatment Medications Current Day (Day 1 , Cycle 3 - Planned for 12/02/2023) Next Day (Day 1, Cycle 4 - Planned for 12/30/2023) apalutamide (ERLEADA) apalutamide (ERLEA DA) 240 mg tablet apalutamide (ERLEADA) 240 mg tablet LEUPROLIDE ACETATE 3 MONTH (LUPRON DEPOT 3 MONTH)* Plan Start Date:03/01/2024 Plan Provider:Donald Underwood MD, PhD Linked Problems Prostate cancer Treatment Medications leuprolide acetate (3 month) (LUPRON DEPOT 3 MONTH) Past Treatment and Therapy Plans TREATMENT PLAN Plan Name Start Date Discontinue Date Treatment Medications Discontinue Reason Plan Provider Cycles DAROLUTA MIDE/DOC ETAXEL 10/05/2023 10/07/2023 darolutamide (NUBEQA)DOCEtaxe l (TAXOTERE) i. Financial / Insurance Coverage Donald Underwood MD, PhD 1 of 9 cycles started Radiation Treatments * Course C2 07/25/2024 - 07/29/2024 Treatment Period Energy Fraction Dose Fractions Total Dose Plans Planned B1_R_ischium 07/25/2024 - 07/29/2024 1,000 cGy 3 / 3 3,000 cGy A1_R_ilium 07/25/2024 - 07/27/2024 1,000 cGy 2 / 3 3,000 cGy Reference Points Delivered B_R_ischium 07/25/2024 - 07/29/2024 3,000 cGy A_R_ilium 07/25/2024 - 07/27/2024 2,000 cGy * Course C1 12/21/2023 - 01/28/2024 Treatment Period Energy Fraction Dose Fractions Total Dose Plans Planned [id number] Prostate RT Intent Revision 0 12/22/2023 - 01/28/2024 250 cGy 28 / 28 7,000 cGy Reference Points Delivered A1_Pelvis 12/22/2023 - 01/28/2024 5,040 cGy A1_Prostate 12/22/2023 - 01/28/2024 7,[address] 12/22/2023 - 01/28/2024 6,160 cGy Resolved Problems Problem Noted Date Diagnosed Date Resolved Date Elevated PSA 06/01/2024 11/09/2024 Sleep disturbance 06/01/2024 12/27/2024
--- OUTSIDE RECORDS SUMMARY | 2025-01-05 03:36 | XMS_ITS | Encounter Summary ---
Author Organization [facility] Address [address] [place] [address] Care Team Providers Care Wildlife Enforcement Major Name Role Phone Pcp, No Primary Care Provider Unavailabl e Encounter Details Date Type Department Care Team (Late st Contact Info) Description 06/01/2024 Scanned Document [address] [place] [address] [phone] Provider, Generic Social History Tobacco Use Types [...] on filedocumented in this encounter Care Teams Wildlife Enforcement Major Relationship Specialty Start Date End Date Pcp, No PCP - General 06/01/24 documented as of this encounter
--- OUTSIDE RECORDS SUMMARY | 2025-01-05 03:36 | XMS_ITS | Clinical Summary ---
Author Organization [facility] Address [address] [place] [address] [place] [address] Phone Care Team Providers Care Predatory Game Hunter Name Role Phone Nick Easton MD Unavailable [phone] Ryan Holder MD, MEGAN Unavailable [phone] Doc Carrizales MD Unavailable [phone] Donald Underwood MD, PhD Unavailable [phone] Bruna Zamora [facility] Unavailable [phone] Young FreireC Unavailable + [phone] Lisa Valenzuela Primary Care Provider [phone]- [phone] Ingris Pedro RN Unavailable [email or web address] Johnson RN Unavailable [email or web address] Claudia Chaudhary MD, PhD Unavailable [phone] Xi Arenas RN Unavailable [phone] Allergies No known active allergies Medications tamsulosin (FLOMAX) 0.4 mg Cap Take 2 capsules (0.8 mg total) by mouth nightly at bedtime. 60 capsule 11 09/11/19 24 Active losartan (COZAAR) 100 MG tablet Take by mouth. 06/28/19 23 Active venlafaxine (EFFEXOR-XR) 37.5 MG 24 hr capsule TAKE 1 CAPSULE(37.5 MG) BY MOUTH DAILY 30 capsule 1 08/13/19 25 Active Additional Information Patient taking differently: 75 mgOral Daily, Reported on 11/07/2024 amLODIPine (NORVASC) 10 MG tablet Take 10 mg by mouth daily. Active traZODone (DESYREL) 100 MG tablet Take 100 mg by mouth nightly at bedtime. Active metoprolol succinate (TOPROL-XL) 25 MG 24 hr tablet Take 25 mg by mouth daily. 09/02/19 25 Active BREO ELLIPTA 100-25 mcg/dose inhaler Inhale 1 puff into the lungs daily. 12/14/19 24 Active umeclidinium (INCRUSE ELLIPTA) 62.5 mcg/actuation inhalation Inhale 62.5 mcg into the lungs nightly at bedtime. 08/13/19 25 025 Active amLODIPine-at orvastatin (CADUET) 10-10 mg per tablet 07/18/19 25 Active ipratropium (ATROVENT) 42 mcg (0.06 %) nasal spray 84 mcg by Nasal route. 06/26/19 24 Active labetaloL (TRANDATE) 200 MG tablet Take by mouth. 06/17/19 12 Active venlafaxine (EFFEXOR-XR) 75 MG 24 hr capsule 08/07/19 25 Active ERLEADA 240 mg tabletIndicat ions:Prostate cancer TAKE 1 TABLET BY MOUTH DAILY SWALLOW TABLET WHOLE WITH OR WITHOUT FOOD 30 tablet 5 12/14/19 25 Active oxyBUTYnin (DITROPAN-XL) 10 MG 24 hr tabletIndicat ions:Hot flashes Take 1 tablet (10 mg total) by mouth daily. 90 tablet 12/28/19 25 026 Active gabapentin (NEURONTIN) 600 MG tablet Take 2 tablets PO QHS 60 tablet 3 12/28/19 25 Active gabapentin (NEURONTIN) 100 MG capsule Take 2 capsules (200 mg total) by mouth 2 (two) times a day. Take 200 mg in the morning, 200 mg in the afternoon. 120 capsule 1 06/09/19 25 025 Discontinued(No longer taking) gabapentin (NEURONTIN) 300 MG capsule Take 2 capsules (600 mg total) by mouth nightly at bedtime. 60 capsule 1 04 025 Discontinued(No longer taking) ERLEADA 240 mg tabletIndicat ions:Prostate cancer TAKE 1 TABLET BY MOUTH DAILY SWALLOW TABLET WHOLE WITH OR WITHOUT FOOD 30 tablet 5 06/21/19 025 Discontinued oxyBUTYnin (DITROPAN-XL) 5 MG 24 hr tabletIndicat ions:Hot flashes Take 1 tablet (5 mg total) by mouth daily. 90 tablet 11/10/19 25 025 Discontinued(Re order) methocarbamoL (ROBAXIN) 500 MG tablet Take 500 mg by mouth 4 (four) times a day. 06/02/19 025 Discontinued Active Problems Problem Noted Date Diagnosed Date [...] benign bone lesions. -initiated Eligard 45 mg [id number] 09/09/23 and initiated apalutamide 240 mg daily [...] of uptake may represent false positives on Mg35-QXQT-19 PET. The scan is very reassuring for [...] oxybutynin to 10 mg -being followed by [facility] to help Mr. Kingston and his adjust to his illess and side effects he is experiencing. -He completed neuro-psych testing- neurocognitive profile reflects broadly intact cognitive abilities, with a pattern of relative weaknesses consistent with frontal network disruption. Cognitive rehab recommended (being offered virtually through our [facility]). He will f/u with neuro-psych [...] benign bone lesions. -initiated Eligard 45 mg [id number] 09/09/23 and initiated apalutamide 240 mg daily [...] of uptake may represent false positives on Io57-QCFL-13 PET. The scan is very reassuring for [...] medication at this time. -being followed by [facility] to help Mr. Kingston and his adjust to his illess and side effects he is experiencing. -He completed neuro-psych testing- neurocognitive profile reflects broadly intact cognitive abilities, with a pattern of relative weaknesses consistent with frontal network disruption. Cognitive rehab recommended (being offered virtually through our [facility]). He will f/u with neuro-psych [...] benign bone lesions. -initiated Eligard 45 mg [id number] 09/09/23 and initiated apalutamide 240 mg daily [...] of uptake may represent false positives on Kn09-LRGN-46 PET. The scan is very reassuring for [...] shaking issue -He was seen by the [facility] to discuss non-pharmacologic approaches to symptom management. I do think he might benefit from consideration of GLP-1 agonist given weight gain -being followed by [facility] to help Mr. Kingston and his adjust to his illess and side effects he is experiencing. -He completed neuro-psych testing- neurocognitive profile reflects broadly intact cognitive abilities, with a pattern of relative weaknesses consistent with frontal network disruption. Cognitive rehab recommended (being offered virtually through our [facility]). He will f/u with neuro-psych [...] benign bone lesions. -initiated Eligard 45 mg [id number] 09/09/23 and initiated apalutamide 240 mg daily [...] of adding docetaxel to ADT alone in [facility] was only seen in patients with high [...] shows osteoporosis/osteopenia. -I placed a referral to [facility] for germline testing. Testing was sent 12/24/23 with results revealing: The DNA analysis, done at [facility], did not identify a meaningful change (mutations). -he notes baseline constipation and hemorrhoids for which he has seen a bsa/aml compliance officer at [facility]. Per pt banding of his hemorrhoids was discussed, but he did not want to pursue at this time. -Continue venlafaxine 150 mg PO daily -He was seen by the [facility] to discuss acupuncture in the treatment of hot flashes and other complementary medicine options available -being followed by [facility] to help Mr. Kingston and his adjust to his illess and side effects he is experiencing. -He completed neuro-psych testing- neurocognitive profile reflects broadly intact cognitive abilities, with a pattern of relative weaknesses consistent with frontal network disruption. Cognitive rehab recommended (being offered virtually through our [facility]). He will f/u with neuro-psych [...] benign bone lesions. -initiated Eligard 45 mg [id number] 09/09/23 and initiated apalutamide 240 mg daily [...] shows osteoporosis/osteopenia. -I placed a referral to [facility] for germline testing. Testing was sent 12/24/23 with results pending -he notes baseline constipation and hemorrhoids for which he has seen a bsa/aml compliance officer at [facility]. Per pt banding of his hemorrhoids was discussed, but he did not want to pursue at this time. As above, his stools are looser since starting apalutamide. -Continue to titrate up venlafaxine - will increase to 112.5 mg daily for now and after 1 week increase to 150 mg daily -We placed referral to the [facility] to discuss acupuncture in the treatment of hot flashes and other complementary medicine options available to the patient that he could utilize while staying at [facility] during radiation, which he is interested in pursuing -We previously placed a referral to [facility] to help Mr. Kingston and his [...] 02/24/24. Will switch to leuprolide 22.5 mg [id number] at that time. If PSA becomes undetectable in the future, could consider stopping leuprolide after 21 months of treatment or switching to monthly dosing near the end of the planned 2 years of treatment Assessment & Plan (11/18/2023 3:51 PM EDT): -This patient has metastatic prostate cancer to bone based on [facility] radiology interpretation of PSMA PET from 09/03/23. -The standard of care for initial treatment of metastatic prostate cancer has been androgen deprivation therapy (ADT). I counseled the patient that this modality almost universally leads to tumor responses, but the degree and duration of response can be variable and is an important factor in overall survival. -Given this patient's metastatic disease, results from [facility]. N Engl J Med. 2013 May [...] and this point given findings from [facility] [address] demonstrating no decrease in SREs for zoledronic acid in castration-sensitive prostate cancer -However, the patient will need DEXA to assess need for bone strengthening agent to prevent ADT-related bone loss. He prefers to obtain this through [facility] and I placed referral and he will [...] he plans to stay at [facility] during this. -We would also consider radiation to sites of PSMA uptake in the bone for maximal cytoreduction to allow for treatment discontinuation in the future with the possibility of prolonged treatment-free interval afterwards. -[facility] radiology review of OSH PSMA PET 09/03/23 [...] systemic therapy. -I placed a referral to [facility] for germline testing. -he notes baseline constipation and hemorrhoids for which he has seen a bsa/aml compliance officer at [facility]. Per pt banding of his hemorrhoids was [...] mg daily. -I placed referral to the [facility] to discuss acupuncture in the treatment of hot flashes and other complementary medicine options available to the patient that he could utilize while staying at [facility] during radiation. -I placed a referral to [facility] to help Mr. Kingston and his [...] metastatic prostate cancer to bone based on [facility] radiology interpretation of PSMA PET from 09/03/23 [...] N Engl J Med. 2013 May 4;368 (14):1314-17 would suggest that intermittent ADT could lead [...] darolutamide today and sent Rx to the [facility] to assess co-pay -there is no role for bone anti-resorptive agent for prevention of skeletal- related events and this point given findings from [facility] [address]852 demonstrating no decrease in SREs for zoledronic [...] the possibility of prolonged treatment-free interval afterwards. [facility] radiology review of OSH PSMA PET 09/03/23 [...] darolutamide Enthesopathy of right knee region 01/18/2019 Resolved Problems Problem Noted Date Diagnosed Date Resolved Date Elevated PSA 06/01/2024 11/09/2024 Sleep disturbance 06/01/2024 12/27/2024 Encounters Date Type Department Care Team Description 12/27/2024 1:30 PM EST Telemedicine [facility] Pulmonary, Allergy and Critical Care Medicine [address] [place] [id number] Christopher Ott MD ROBERT (obstructive sleep apnea); Vlad-Hernandez respiration; PLMD (periodic limb movement disorder); RLS (restless legs syndrome) 12/27/2024 Orders Only [facility], [facility] at [address] [address] Moriah Morales PA-C Hot flashes 12/15/2024 Orders Only [facility], [facility] [address] [place] [address], [address] [place] [address] Donald Underwood MD, PhD 12/13/2024 Refill [facility], [facility] at [address] [address] Donald Underwood MD, PhD Medication Refill 11/17/2024 12:00 PM EDT - 11/17/2024 11:59 PM EDT Hospital Encounter Department of Radiation Oncology [address] [place] [address] Mulugeta Rivas, WENDY Discharge Disposition: Home or Self Care 11/16/2024 4:15 PM EDT Infusion Infusion Therapy Services [facility] at [address] [address] Donald Underwood MD, PhD Elayne Puri RN Prostate cancer (Primary Dx) 11/16/2024 3:30 PM EDT Office Visit [facility], [facility] at [address] [address] Donald Underwood MD, PhD Prostate cancer (Primary Dx); nursing home use of drug 11/09/2024 8:57 AM EDT - 11/09/2024 11:59 PM EDT Hospital Encounter Department of Radiation Oncology [address] [place] [address] Ryan Holder MD, MEGAN Mulugeta Rivas, BACTERIOLOGY PROFESSOR Discharge Disposition: Home or Self Care 11/08/2024 Telephone [facility] Pul[facility], Allergy and Critical Care Medicine [address] [place] [phone] Christopher Ott MD DME (CPAP mask from [employer]) 11/07/2024 1:00 PM EDT Office Visit [facility], Allergy and Critical Care Medicine [address] [place] [phone] Christopher Ott MD ROBERT (obstructive sleep apnea); Vlad-Hernandez respiration 10/07/2024 11:30 AM EDT Telemedicine Psychosocial Oncology, [address] [address] Dhruv Lerner MD Adjustment disorder with anxious mood (Primary Dx) 10/05/2024 Telephone [facility], Allergy and Critical Care Medicine [address] [place] [address] Pam Rowland CPAP questions from Last 3 Months Immunizations Immunization Administration Dates Next Due COVID-19, Unspecified Formulation 02/19/2021,04/2020,05/27/2020 Influenza, Unspecified Formulation 01/21,01/15/2022,02/19/2021,12/04/19 18,11/16/2012 Zoster unspecified formulation 01/21/2023 Family History Medical History Relation Comments Breast cancer Maternal Aunt 1 Breast cancer Maternal Aunt 2 Breast cancer Maternal Cousin Bone cancer Maternal Grandfather Breast cancer Maternal Grandmother Breast cancer Mother Relation Status Comments Maternal Aunt 1 Maternal Aunt 2 Maternal Cousin Maternal Grandfather Maternal Grandmother Mother Social History Tobacco Use Types Packs/Day Years Used Date Smoking Tobacco: Never Smokeless Tobacco: Never Tobacco Cessation:Counseling Given: Not Answered Child or Family Care Answer Date Record ed Do you have problems with on e of the following making it difficult for you to work, study, or receive health care? No 09/11/2023 Education Answer Date Recorded Are you interested in help w ith more adult education (for example, completing high school, GED, job training, learning the [place] language, technical skills, or developing parenting skills)? [...] your housing situation today? I have shasta sing 09/11/2023 How many times have you move [...] file Not on file Not on file Last Filed Vital Signs Vital Sign Reading Time Taken Comments Blood Pressure 147/75 11/16/2024 2:43 PM EDT Pulse 68 11/16/2024 2:43 PM EDT Temperature 36.2 C (97.2 F) 11/16/2024 2:43 PM EDT Respiratory Rate 16 11/16/2024 2:43 PM EDT Oxygen Saturation 98% 11/16/2024 2:43 PM EDT Inhaled Oxygen Concentration - - Weight 113.8 kg (250 lb 14.1 oz) 11/16/2024 2:43 PM EDT Height 179.9 cm (5' 10.83 ) 11/07/2024 12:58 PM EDT Body Mass Index 35.16 11/07/2024 12:58 PM EDT Plan of Treatment Upcoming Encounters Date Type Department Care Team (Late st Contact Info) Description 02/22/2025 1:20 PM EST Blood Draw Laboratory Services, [facility] [place] [address] [address] Donald Underwood MD, PhD [address] [address] [email or web address] 02/22/2025 2:00 PM EST Office Visit [facility], [facility] at [address] [address] Moriah Morales PA-C [address] [place] [address] [email or web address] 02/22/2025 2:45 PM EST Infusion Infusion Therapy Services [place], [facility] at [address] [address] Donald Underwood MD, PhD [address] [address] [email or web address] 05/10/2025 1:45 PM EDT Appointment [facility], PET/CT [address] [place] [address] Donald Underwood MD, PhD [address] [address] [email or web address] 05/17/2025 2:20 PM EDT Blood Draw Laboratory Services, [facility] at [address] [address] Donald Underwood MD, PhD [address] [address] [email or web address] 05/17/2025 3:00 PM EDT Office Visit [facility], [facility] at [address] [address] Donald Underwood MD, PhD [address] [address] [email or web address] 05/17/2025 3:45 PM EDT Infusion Infusion Therapy Services [facility] [facility] [place] 300 [facility] [address] [place] [address] Donald Underwood MD, PhD [address] [place] [address] [email or web address] Maintenance Due Date Last Done Comments Adult Td,Tdap Booster 1960 LIPID PANEL 1960 HEPATITIS C SCREENING 05/06/1977 HIV ONE-TIME SCREENING (18-65 YEARS) 05/06/1977 PNEUMOCOCCAL VACCINES (50+ years) (1 of 2 - PCV) 05/06/1978 ZOSTER VACCINES (1 of 2) 05/06/1978 01/21/2023 COLOGUARD 05/06/2004 COLONOSCOPY 05/06/2004 COLORECTAL CANCER SCREENING 05/06/2004 FIT TEST 05/06/2004 FOBT 05/06/2004 SIGMOIDOSCOPY 05/06/2004 VIRTUAL COLONOSCOPY 05/06/2004 RSV VACCINE (1 - Risk 50-74 years 1-dose series) 05/06/2009 REPEAT PHQ 08/26/2024 07/27/2024, 07/27/2024 INFLUENZA VACCINE (#1) 2024 , 01/15/2022, 02/19/2021, Additional history exists COVID-19 VACCINE (2024- season) 2024 02/19/2021, 06/18/2020, 05/27/2020 BLOOD PRESSURE 05/17/2025 11/16/2024 DEPRESSION SCREENING 07/27/2025 07/27/2024, 07/28/19 25 CREATININE LEVEL 11/16/2025 11/16/2024, 08/2024, 07/12/2024, Additional history exists POTASSIUM LEVEL 11/16/2025 11/16/2024, 07/0 08/2024, 07/12/2024, Additional history exists SCREENING FOR DIABETES 11/17/2027 11/16/2024 SMOKING STATUS SCREENING (Once After 26 Yrs) Completed 11/07/2024 HEPATITIS A VACCINES Aged Out No long er eligible based on patient's age to complete this topic HIB VACCINES Aged Out No longer eligi ble based on patient's age to complete this topic MENINGOCOCCAL VACCINES (ACWY) Aged Out No longer eligible based on patient's age to complete this topic MENINGOCOCCAL VACCINES (B) Aged Out N o longer eligible based on patient's age to complete this topic Medical Devices Not on file Procedures Procedure Name Priority Date/Time Associated Diagnosis Comments FERRITIN Routine 11/16/2024 2:23 PM EDT Restless leg Anemia, unspecified type Prostate cancer IRON AND IRON BINDING CAPACITY Routine 11/16/2024 2:23 PM EDT Restless leg Anemia, unspecified type Prostate cancer TESTOSTERONE, TOTAL Routine 11/16/2024 2 :23 PM EDT Prostate cancer PSA DIAGNOSTIC (MONITORING) Routine 11/16/2024 2:23 PM EDT Prostate cancer COMPREHENSIVE METABOLIC PANEL (CMP) Routine 11/16/2024 2:23 PM EDT Prostate cancer HC BLOOD COUNT COMPLETE AUTO&AUTO DIFRNTL WBC Routine 11/16/2024 2:23 PM EDT Prostate cancer from Last 3 Months Results * (ABNORMAL) Comprehensive metabolic panel (11/16/2024 2:23 PM EDT) SODIUM 143 136 - 145 mmol/L [facility] POTASSIUM 4.0 3.4 - 5.1 mmol/L [facility] CHLORIDE 105 98 - 107 mmol/L [facility] CO2 24 22 - 31 mmol/L [facility] BUN 20 6 - 23 mg/dL [facility] CREATININE 1.19 0.50 - 1.20 mg/dL [facility] GLUCOSE 117(H) 70 - 100 mg/dL [facility] ALBUMIN 4.2 3.5 - 5.2 g/dL [facility] TOTAL PROTEIN 6.9 6.4 - 8.3 g/dL [facility] CALCIUM 9.1 8.8 - 10.7 mg/dL [facility] ALKALINE PHOSPHATASE 106 40 - 129 U/L [facility] TOTAL BILIRUBIN 0.2 0.2 - 1.2 mg/dL [facility] AST 15 <41 U/L [facility] ALT 11 <42 U/L [facility] GLOBULIN 2.7 2.3 - 4.2 g/dL [facility] EGFR 68 >59 mL/min/1.7 3m2 [facility] Comment:Estimated glomerular filtration rate calculated using the CKD-EPI refit equation. ANION GAP 14 7 - 17 mmol/L [facility] Blood 11/16/2024 2:23 PM EDT 11/16/2024 2:25 PM EDT us Donald Underwood MD, PhD LAB BLOOD BKR ORDERABL ES Final Result Performing Organization Address [facility] Co de Phone Number [address] * PSA diagnostic (monitoring) (11/16/2024 2:23 PM EDT) PSA Monitoring 0.04 0.00 - 4.00 ng/mL [facility] Blood 11/16/2024 2:23 PM EDT 11/16/2024 2:25 PM EDT us Donald Underwood MD, PhD LAB BLOOD BKR ORDERABL ES Final Result Performing Organization Address City/[facility] [employer] de Phone Number [address] * Iron and iron binding capacity (11/16/2024 2:23 PM EDT) Pathologist [facility] IRON 82 59 - 158 ug/dL [facility] IRON BINDING CAPACITY 288 220 - 460 ug/dL [facility] TRANSFERRIN SATURAT. 28 14 - 50 % [facility] Blood 11/16/2024 2:23 PM EDT 11/16/2024 2:25 PM EDT us Mulugeta Rivas BACTERIOLOGY PROFESSOR LAB BLOOD BKR ORDERABLES F inal Result [facility] [address] * (ABNORMAL) CBC and differential (11/16/2024 2:23 PM EDT) [facility] WBC 5.68 4.00 - 10.00 K/uL [facility] RBC 3.97(L) 4.50 - 6.40 M/uL [facility] HGB 13.9 13.5 - 18.0 g/dL [facility] HCT 38.5(L) 40.0 - 54.0 % [facility] PLT 195 150 - 450 K/uL [facility] MCV 97.0 80.0 - 100.0 fL [facility] MCH 35.0(H) 27.0 - 32.0 pg [facility] MCHC 36.1(H) 32.0 - 36.0 g/dL [facility] RDW 11.8 11.5 - 14.5 % [facility] MPV 9.6 8.4 - 12.0 fL [facility] NRBC 0.00 0.00 /100 WBCs [facility] ABSOLUTE NRBC 0.00 0 K/uL [facility] DIFF [employer] [facility] NEUTS 72.6 48.0 - 76.0 % [facility] LYMPHS 12.5(L) 18.0 - 41.0 % [facility] MONOS 11.1(H) 4.0 - 11.0 % [facility] EOS 2.6 0.0 - 5.0 % [facility] BASOS 0.5 0.00 - 1.50 % [facility] % IMMATURE GRANS 0.7 0.00 - 1.00 % [facility] ABSOLUTE NEUTS 4.12 1.92 - 7.60 K/uL [facility] ABSOLUTE LYMPHS 0.71(L) 0.72 - 4.10 K/uL [facility] ABSOLUTE MONOS 0.63 0.16 - 1.10 K/uL [facility] ABSOLUTE EOS 0.15 0.00 - 0.50 K/uL [facility] ABSOLUTE BASOS 0.03 0.00 - 0.15 K/uL [facility] ABS IMMATURE GRANS 0.04 0.00 - 0.10 K/uL [facility] Blood 11/16/2024 2:23 PM EDT 11/16/2024 2:25 PM EDT us Donald Underwood MD, PhD LAB BLOOD BKR ORDERABL ES Final Result [facility] [facility] [address] * (ABNORMAL) Testosterone, total (11/16/2024 2:23 PM EDT) TESTOSTERONE 3(L) 193 - 740 ng/dL [facility] Blood 11/16/2024 2:23 PM EDT 11/16/2024 2:25 PM EDT us Donald Underwood MD, PhD LAB BLOOD BKR ORDERABL ES Final Result [facility] [address] [place] [address], [facility] * Ferritin (11/16/2024 2:23 PM EDT) FERRITIN 148 30 - 400 ug/L [facility] Blood 11/16/2024 2:23 PM EDT 11/16/2024 2:25 PM EDT us Mulugeta Rivas BACTERIOLOGY PROFESSOR LAB BLOOD BKR ORDERABLES F inal Result [facility] [address] [place] [address], [facility] from Last 3 Months Insurance [facility] RE[facility] MEDICARE REPLACEMENT [place] [employer] PPO MEDICARE REPLACEMENT Care Teams Predatory Game Hunter Relationship Specialty Start Date End Date Lisa Valenzuela PA [address] [place] [address] PCP - General Physician Waist Fitter 03/01/24 Nick Easton MD [address] [address] Urology 08/27/23 Ryan Holder MD, MEGAN [address] [place], [place] [address]- [address] [address] Radiation Oncology 08/27/23 Doc Carrizales MD [address] [place] [phone] [email or web address] Urology 08/27/23 Donald Underwood MD, PhD [facility] [place] [address] [email or web address] Medical Oncology 08/27/23 Bruna Zamora, ANALYTICAL STATISTICIAN [address] [place] [phone] [email or web address] Lower In Supervisor Oncology 11/25/23 Young Freire PA-C [address] [place] [address] [phone] [email or web address] Physician Waist Fitter 12/29/23 Ingris Pedro RN [address] [place] [phone] [email or web address] Primary Infusion Nurse 03/01/24 Shavon Justice RN [address] [place] [phone] [email or web address] Primary Infusion Nurse 05/25/24 Claudia Chaudhary MD, PhD [address] [place] [phone] [email or web address] Radiation Oncology 05/27/24 Xi Arenas RN [address] [place] [phone] [email or web address] Associate Infusion Nurse 11/15/24 Additional Source Comments The information contained in this document represents components of the legal health record. It is not the complete legal health record.[facility]
--- OUTSIDE RECORDS SUMMARY | 2025-01-05 03:36 | XMS_ITS | Encounter Summary ---
Author Organization [facility] Address [address] [facility] [address] [place] [address] Phone Care Team Providers Care Nurse Midwife/Clinical Instructor Name Role Phone Nick Easton MD Unavailable [phone] Ryan Holder MD, MEGAN Unavailable [phone] Doc Carrizales MD Unavailable [phone] Donald Underwood MD, PhD Unavailable + [phone] Bruna Zamora [facility] Unavailable + [phone] Young FreireC Unavailable + [phone] Lisa Valenzuela Primary Care Provider + [phone] Ingris Pedro RN Unavailable [email or web address] [email or web address] Shavon Johnson RN Unavailable [email or web address] Claudia Chaudhary MD, PhD Unavailable [phone] Xi Areans RN Unavailable [phone] Encounter Details Date Type Department Care Team (Late st Contact Info) Description 12/15/2024 Orders Only [facility] [place] [address] [facility], [address]th [place] [address] Donald Underwood MD, PhD 450 [facility] [place] [address] [place] [address] [email or web address] Social History Tobacco Use Types Packs/Day Years [...] high school, GED, job training, learning the Faroese language, technical skills, or developing parenting skills)? [...] 1:20 PM EST Blood Draw Laboratory Services, [facility] at [address] [address] Donald Underwood MD, PhD [address] [address] [email or web address] 02/22/2025 2:00 PM EST Office Visit [facility], [facility] at [address] [address] Moriah Morales PA-C [address] [place] [address] [email or web address] 02/22/2025 2:45 PM EST Infusion Infusion Therapy Services [facility] at [address] [address] Donald Underwood MD, PhD [address] [address] [email or web address] 05/10/2025 1:45 PM EDT Appointment [facility], PET/CT [address] [address] Donald Underwood MD, PhD [address] [address] [email or web address] 05/17/2025 2:20 PM EDT Blood Draw Laboratory Services, [facility] at [address] [address] Donald Underwood MD, PhD [address] [address] [email or web address] 05/17/2025 3:00 PM EDT Office Visit [facility], [facility] at [address] [address] Donald Underwood MD, PhD [address] [address] [email or web address] 05/17/2025 3:45 PM EDT Infusion Infusion Therapy Services [place], [facility] at [address] [address] Donald Underwood MD, PhD [address] [address] [email or web address] documented as of this encounter Visit Diagnoses Not on filedocumented in this encounter Additional Health Concerns Assessment Noted Time PHQ-9 Depression Total Score: 13 025 12:59 PM EDT PHQ-2 Depression Total Score: 4 07/28/19 25 12:59 PM EDT documented as of this encounter Care Teams Nurse Midwife/Clinical Instructor Relationship Specialty Start Date End Date Lisa Valenzuela PA [address] [place] [address] PCP - General Physician Compounder [employer] 03/01/24 Nick Easton MD 100 [facility] 120 [place] [address] Urology 08/27/23 Ryan Holder MD, MEGAN [address] [place], [place] [address]- [address] [address] [email or web address] Radiation Oncology 08/27/23 Doc Carrizales MD [address] [place] [address] [email or web address] Urology 08/27/23 Donald Underwood MD, PhD [address] [place] [address] [email or web address] Medical Oncology 08/27/23 Bruna Zamora, [facility] [address] [place] [address] [email or web address] Command Post Craftsman Oncology 11/25/23 Young Freire PA-C [address] [place] [phone] [email or web address] Physician Compounder [employer] 12/29/23 Ingris Pedro RN 450 [place] [address] [email or web address] Primary Infusion Nurse 03/01/24 Shavon Justice, RUMA [address] [place] [address] [email or web address] Primary Infusion Nurse 05/25/24 Claudia Chaudhary MD, PhD [address] [place] [address] [email or web address] Radiation Oncology 05/27/24 Xi Arenas RN 300 [place] [address] [email or web address] Associate Infusion Nurse 11/15/24 documented as of this encounter Additional Source Comments The information contained in this document represents components of the legal health record. It is not the complete legal health record.[facility]
== END 2025-01-04 15:36 | disposition home or self-care (01) ==
LOC: HO.HMCFM 15:00
PROVIDERS: PCP Physician Assistant; Visit Provider Physician Assistant
DX: C61 Malignant neoplasm of prostate (principal); I10 Essential (primary) hypertension; J06.9 Acute upper respiratory infection, unspecified

== ENCOUNTER 2025-01-04 14:59 | Outpatient (REF) | payer MEDICARE, MEDICAID, SELFPAY ==
[2025-01-04 18:43] LABS: Resp Syncy Virus RNA Qual PCR NEGATIVE (Negative); SARS COV2 PCR INHOUSE NEGATIVE (Negative)
== END 2025-01-04 15:00 | disposition home or self-care (01) ==
LOC: HO.LNP 14:59
PROVIDERS: PCP Physician Assistant; Visit Provider Physician Assistant
DX: R09.89 Other specified symptoms and signs involving the circulatory and respiratory systems (principal); J06.9 Acute upper respiratory infection, unspecified; I10 Essential (primary) hypertension; C61 Malignant neoplasm of prostate
CPT/HCPCS: 87637; 99212